=== PATIENT | female | born 1980 | race Caucasian/White ===

== ENCOUNTER 2018-02-10 06:30 | Day surgery (SDC) | payer BC ==
[2018-02-06 10:21] LABS: Absolute Lymphocytes (CBC) 2.3 K/uL (0.7-4.9); Absolute Monocytes 0.8 K/uL (0.1-1.3); Absolute Neutrophil 5.2 K/uL (1.8-8.0); Basophils % 0.6 % (0-1.3); Eosinophils % 3.3 % (0-4.4); Hematocrit 43.6 % (36.0-45.0); MCH 34.3 pg (27.0-35.0); MCV 99.8 fL (80-100); MPV 10.7 fL (7.6-11.3); Monocytes % 9.3 % (3.3-12.3); RBC Red Blood Cell Count 4.37 M/uL (3.86-4.86)
[2018-02-06 10:24] LABS: Urine Appearance CLEAR; Urine Bilirubin NEGATIVE (NEG); Urine Blood TRACE (NEG); Urine Color YELLOW; Urine Glucose NEGATIVE (NEG); Urine Protein NEGATIVE (NEG); Urine Urobilinogen 0.2 mg/dL (0.2-1.0)
[2018-02-06 10:27] LABS: Urine Microscopic Reflex ORDER UMIC
[2018-02-06 10:37] LABS: Urine Bacteria <20 /HPF (<20); Urine RBC <5 /HPF (NONE SEEN)
[2018-02-06 10:38] LABS: Urine Culture Reflex Order NOT NEEDED; Urine Mucus 1+ /HPF (NONE SEEN)
[2018-02-09 12:48] LABS: Specific Gravity 1.025 (1.005-1.030)
[2018-02-10 06:49] LABS: Specific Gravity 1.015 (1.005-1.030)
[2018-02-10] MEDS ORDERED: SCOPOLAMINE HYDROBROMIDE PATCH TD ONE (07:05)
[2018-02-10] MEDS ORDERED: Ringers Lactate 1,000 ML IV ONE ×3 (07:06→11:02)
[2018-02-10] MEDS ORDERED: PROPOFOL 200 MG/20 ML VIAL IV ONE (07:12)
[2018-02-10] MEDS ORDERED: ROCURONIUM 50 MG/5 ML VIAL IV ONE (07:14)
[2018-02-10] MEDS ORDERED: GLYCOPYRROLATE 0.2 MG/ML SYR ONE (07:14)
[2018-02-10] MEDS ORDERED: LIDOCAINE 2% MPF 5 ML VIAL ONE (07:16)
[2018-02-10] MEDS ORDERED: FENTANYL CITR 250 MCG/5 ML ONE (07:17)
[2018-02-10] MEDS ORDERED: NEOSTIGMINE 1 MG/ML -5 ML SYRINGE ONE (07:18)
[2018-02-10] MEDS ORDERED: ONDANSETRON HCL 40 MG/20 ML VIAL ONE ×2 (07:18→10:16)
[2018-02-10] MEDS ORDERED: MIDAZOLAM HCL 2 MG/2 ML INJ ONE (07:45)
[2018-02-10] MEDS: CEFAZOLIN/SWI 1gm 1 GM/10 ML SYR ONE ×2 (08:05→08:20)
[2018-02-10] MEDS ORDERED: EPHEDRINE SULF 50 MG/10 ML SYR ONE (08:29)
[2018-02-10] MEDS ORDERED: KETOROLAC 30 MG/ML INJ ONE (10:08)
[2018-02-10] MEDS ORDERED: DEXAMETHASONE 10 MG/ML VIAL ONE (10:16)
[2018-02-10] MEDS ORDERED: Mastisol Adhesive Liq ONE (10:25)
[2018-02-10] MEDS: MEPERIDINE HCL 50 MG/ML AMP ONE ×8 (10:35→11:12)
[2018-02-10] MEDS: MORPHINE 4 MG/ML SYR ONE ×2 (11:15→11:22)
[2018-02-10] MEDS: FENTANYL CITR 100 MCG/2 ML ONE ×2 (11:30→12:04)
[2018-02-10] MEDS ORDERED: IBUPROFEN 200 MG TAB PO ONE (13:05)
--- NOTE | 2018-02-11 10:29 | OP ---
Date of Procedure: 02/10/2018 Surgeon: Anju Devlin MD Sports Anchor: Adrienne Frazier. Preoperative Diagnoses: Heavy menstrual bleeding, dysmenorrhea, dyspareunia, pelvic pain. Postoperative Diagnoses: Heavy menstrual bleeding, dysmenorrhea, dyspareunia, pelvic pain, possible endometriosis, mass on the liver on the left lobe. Procedures Performed: 1.Diagnostic hysteroscopy followed by endometrial ablation with NovaSure. 2.Diagnostic laparoscopy, bilateral salpingectomy, left ovarian cystectomy, and endometriosis excisi on. Anesthesia: General endotracheal. Estimated Blood Loss: Minimal. Complications: None. Drains: None. Specimens: Left lateral wall, right anterior lateral wall, left cul-de-sac, left ovarian cyst. Findings: 1.There was an incidental mass on the left lobe of the liver on the inferior margin which was about 4 x 2 to 3 cm, appears on the surface to be irregular, possibly consistent with a hemangioma. 2.Endometriosis in the left lateral wall where there was an Shashi-Masters sinus. There was endometr iosis that was underlying, deep, and infiltrating, and it was excised. In the left posterior cul-de- sac, immediately medial to the left uterosacral ligament in the pararectal space, there was a large A llen-Masters sinus again; however, on pulling out the deepest scar and excising it with scissors, the re was only perirectal fat. No evidence of any endometriosis or infiltration here at this point. 3.On the right lateral wall, there was a dark endometriotic implant that was excised. Description Of Procedure: After informed consent was verified, the patient was taken back to the OR. 1 g of Ancef was given. She was placed in a dorsal lithotomy position after general anesthesia was given. Arms were tucked by the side. After pelvic exam was performed, the entire abdomen, vulva, v agina, and perineum were prepped and draped in a sterile fashion. Lopes was placed to drain the blad yesica. Then, speculum was used to expose the cervix. Anterior lip of the cervix was grasped with 2 Al lis clamps. Diagnostic SlimLine hysteroscope was used to enter the cervical canal and under direct v isualization the cavity was checked. Posterior wall appeared to be thickened; however, no intracavit sravanthi lesions were seen. The sounding length of the uterus was 8-1/2 cm. The cervical length was 3-1/ 2 cm. The total cavity length was 5. The cavity width after assessment was 4.4 cm. After this, a S limLine scope was removed. A NovaSure device was taken. The cervix was dilated to 16-Tanzanian. This was inserted to the tip of the uterine cavity and the mesh was deployed. Then, the cervix was occlud ed with occluder, and the cavity integrity test was done, and once this was passed the ablation cycle was started at 121 galloway. The ablation cycle was completed at 121 seconds. After the ablation was complete, this was undeployed and removed carefully without any problems and t he entire cavity was evacuated from the tissue by irrigating and rinsing out with normal saline as we ll as with the help of Reuben forceps. Then, once the entire cavity was clean, pictures were taken. Diagnostic VCare was placed and this area was draped. Lopes was connected to a Lopes bag. Infraum bilical incision was made with a scalpel using a 10 blade. Then, the fascia was incised in the midli ne, tagged on each side with 0 Vicryl stitches, and peritoneum was entered. Marcela was placed after S-retractors were introduced. Site of entry was checked and it was unremarkable. The liver was chec ked and incidental finding on the left lobe of the liver as dictated above. There was a left liver m ass that appeared to be possibly consistent with a hemangioma. Images were first taken, later on the y were repeated because the images were lost due to equipment failure. There were no lesions of endometriosis on the diaphragm or on the omentum. Upper abdominal surfaces were completely free of any endometriotic implants. After the patient was placed in Trendelenburg position, a 5 mm suprapubic incision and the left lower quadrant incisions were made. Trocars were placed under direct vision. Later on, the right lower q uadrant trocar was also placed for retraction. All these were sized, once all these were placed, the survey of the pelvic cavity was conducted. There was an enlarged left ovary with 3 cystic areas, li baldo physiological. The one that appeared to be darker, just in case this is endometriosis, cyst wal l was incised with the help of monopolar needle tip and the cyst was excised. This appeared to be ve ry benign, so I did not go on to remove the other two cysts. The capsule was repaired after appropri ate cauterization from the base with bipolar basket tip with a 3-0 Vicryl on a cutting needle. The o vary was closed. This was wrapped with Interceed later on at the end of the case. The scar tissue present was at the left lateral wall medial to the ureteric tunnel and lateral to the uterosacral ligament was picked up and excised all the way to its base from the deep underlying tiss ues with the help of monopolar hook blade, and this was handed off for pathology. Similarly dissecti on was performed in the sinus medial to the left uterosacral on the left pararectal space. This was pulled out and it was excised with scissors with excellent hemostasis and without having to use the m onopolar electrocautery or bipolar electrocautery. On the right lateral wall anteriorly, a circular area of peritoneum was excised with endometriosis. No other spots were seen. The tubes were cauterized with the help of a basket tip bipolar starting a t the distal ends and taking out the mesosalpinx was also excised . The ovary o n the right side appeared to be completely intact. Now, anterior cul-de-sac and rest of the peritone um were completely unremarkable without any endometriosis. There were small adhesions to the right lower quadrant from the right colon. No other abnormalities were seen. The appendix appeared to be normal. After all the specimens were removed and trocars wer e removed, gas was desufflated. Fascia at the umbilicus was closed with the help of a 0 Vicryl in fi [id number] fashion. all incisions were closed in subcutaneous fashion. VCare and Fole y were removed. The patient was recovered from anesthesia. Instrument, needle, and sponge counts we re correct at the end of the case. The patient tolerated the procedure well. She will follow up with me in 1 week. HUSSEIN/SHABBIR Voice ID: [id number] Report ID: [id number]
== END 2018-02-10 14:04 | disposition home or self-care (01) ==
LOC: OR 06:30
PROVIDERS: ATTEND Obstetrics & Gynecology
PROC: 0UB14ZZ Excision of Left Ovary, Percutaneous Endoscopic Approach (ICD-10-PCS; 2018-02-10)
PROC: 0UT74ZZ Resection of Bilateral Fallopian Tubes, Percutaneous Endoscopic Approach (ICD-10-PCS; 2018-02-10)
PROC: 0UBF4ZX Excision of Cul-de-sac, Percutaneous Endoscopic Approach, Diagnostic (ICD-10-PCS; 2018-02-10)
PROC: 0U5B8ZZ Destruction of Endometrium, Via Natural or Artificial Opening Endoscopic (ICD-10-PCS; principal; 2018-02-10 07:30)
DX: N92.1 Excessive and frequent menstruation with irregular cycle (principal); N83.12 Corpus luteum cyst of left ovary; N80.3 Endometriosis of pelvic peritoneum; N94.12 Deep dyspareunia; N94.6 Dysmenorrhea, unspecified; R16.0 Hepatomegaly, not elsewhere classified; F41.9 Anxiety disorder, unspecified; Z85.41 Personal history of malignant neoplasm of cervix uteri; Z88.8 Allergy status to other drugs, medicaments and biological substances; Z87.891 Personal history of nicotine dependence; Z80.9 Family history of malignant neoplasm, unspecified; Z83.3 Family history of diabetes mellitus
CPT/HCPCS: 36415; 81003; 81015; 81025; 85025; 86850; 86900; 86901; 88302; 88305; J0690; J1100; J2175; J2250; J2405; J2710; J3010

== ENCOUNTER 2018-06-04 07:11 | Day surgery (SDC) | payer BC ==
[2018-06-01 08:52] LABS: Urine Appearance CLOUDY; Urine Bilirubin NEGATIVE (NEG); Urine Blood NEGATIVE (NEG); Urine Color YELLOW; Urine Glucose NEGATIVE (NEG); Urine Protein NEGATIVE (NEG); Urine Urobilinogen 0.2 mg/dL (0.2-1.0)
[2018-06-01 08:56] LABS: Urine Microscopic Reflex ORDER UMIC
[2018-06-01 09:03] LABS: Urine Bacteria 20-50 /HPF (<20); Urine Culture Reflex Order REFLEXED; Urine Mucus 2+ /HPF (NONE SEEN); Urine RBC <5 /HPF (NONE SEEN)
[2018-06-01 09:15] LABS: Absolute Lymphocytes (CBC) 1.9 K/uL (0.7-4.9); Absolute Monocytes 0.6 K/uL (0.1-1.3); Absolute Neutrophil 4.2 K/uL (1.8-8.0); Basophils % 0.5 % (0-1.3); Eosinophils % 3.2 % (0-4.4); Hematocrit 38.9 % (36.0-45.0); Lymphocytes % 27.4 % (15.3-44.8); MPV 10.8 fL (7.6-11.3); Monocytes % 8.4 % (3.3-12.3); RBC Red Blood Cell Count 4.04 M/uL (3.86-4.86)
[2018-06-04] MEDS ORDERED: SCOPOLAMINE HYDROBROMIDE PATCH TD ONE (07:27)
[2018-06-04] MEDS ORDERED: Ringers Lactate 1,000 ML IV ONE (07:27)
[2018-06-04] MEDS ORDERED: CEFAZOLIN 2GM (PREMIX IV) 2 GM/50 ML BAG ONE (07:27)
[2018-06-04] MEDS ORDERED: LIDOCAINE 1% MPF 5 ML VIAL ONE (07:28)
[2018-06-04] MEDS ORDERED: LIDOCAINE 2% MPF 5 ML VIAL ONE (07:29)
[2018-06-04] MEDS ORDERED: FENTANYL CITR 250 MCG/5 ML ONE (07:29)
[2018-06-04] MEDS ORDERED: DEXAMETHASONE 10 MG/ML VIAL ONE (07:29)
[2018-06-04] MEDS ORDERED: PROPOFOL 200 MG/20 ML VIAL IV ONE (07:29)
[2018-06-04] MEDS ORDERED: MIDAZOLAM HCL 2 MG/2 ML INJ ONE (07:29)
[2018-06-04] MEDS ORDERED: ROCURONIUM 50 MG/5 ML VIAL IV ONE (07:29)
[2018-06-04] MEDS ORDERED: NA CHLORIDE 0.9% 1,000 ML ONE (07:30)
[2018-06-04] MEDS ORDERED: ONDANSETRON 4 MG/2 ML VIAL ONE (07:33)
[2018-06-04] MEDS ORDERED: IBUPROFEN 200 MG TAB PO PRN (10:15)
[2018-06-04] MEDS ORDERED: PROMETHAZINE 25 MG/ML VIAL IV PRN (10:15)
[2018-06-04] MEDS ORDERED: HYDROCODONE/APAP 5/325 MG TAB PO PRN (10:15)
[2018-06-04] MEDS ORDERED: KETOROLAC 30 MG/ML INJ ONE (10:18)
--- NOTE | 2018-06-04 10:19 | P.BOP ---
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
[2018-06-04] MEDS ORDERED: Mastisol Adhesive Liq ONE (10:30)
[2018-06-04] MEDS: HYDROMORPHONE HCL 1 MG/ML INJ ONE ×4 (10:48→11:07)
[2018-06-04] MEDS: MIDAZOLAM HCL 2 MG/2 ML INJ ONE ×2 (11:20→11:50)
[2018-06-04] MEDS: MEPERIDINE HCL 25 MG/0.5 ML IM PRN ×2 (11:58→12:03)
[2018-06-04] MEDS ORDERED: MEPERIDINE HCL 25 MG/0.5 ML ONE (12:08)
[2018-06-04] MEDS ORDERED: HYDROCODONE/APAP 5/325 MG TAB ONE (12:53)
--- NOTE | 2018-06-04 21:21 | OP ---
Date of Procedure: 06/04/2018 Surgeon: Anju Devlin MD Preoperative Diagnosis: Pelvic pain, dyspareunia, and dysmenorrhea, possible adenomyosis. Postoperative Diagnosis: Pelvic pain, dyspareunia, and dysmenorrhea, possible adenomyosis. Left hep atic lobe possible hemangioma, picture taken and documented in the chart. Procedures Performed: Total laparoscopic hysterectomy, culdoplasty, lysis of adhesions on the left l ower quadrant. Anesthesia: General endotracheal. Ebl: 50. Specimens: Uterus. Complications: No complications. Drains: None. Condition: Stable. Findings: On the general survey of the abdominal cavity, the left lobe of the liver at the lateral m argin has had at least a 3 cm to 5 cm possible tumor, possible hemangioma. The ovaries were complete ly normal. There was a sinus formed at the site of her left salpingectomy. The proximal end of the tube appeared to have some hemorrhage. Either this is an endometriotic implant or it is from the tub e. The cul-de-sac had appearance of a posterior enterocele, so culdoplasty was performed. Indications: The patient is a 37-year-old who had pelvic pain, menorrhagia and dysmenorrhea and dysp areunia. She was treated with conservative therapy, then brought to the OR for a laparoscopy ablatio n, removal of endometriosis, and bilateral salpingectomy. However the patient has not improved, her dysmenorrhea and dyspareunia have remained the same and causing the severe quality of life issues and relationship dysfunction. She also is done with childbearing. No desire to preserve her uterus. S o as all the conservative treatments and less invasive treatments have failed, we discussed about the hysterectomy. Benefits and risks of the procedure were discussed. Patient wanted to have a bilater al oophorectomy as well. This was discussed to be not necessary to treat her pain at this time unles s there is some new finding during the surgery and that preservation of ovaries are standard of care at this age in the absence of any pathology. Description Of Procedure: After informed consent was verified, she was taken back to the OR, 2 g of Ancef were given. She was placed in a dorsal lithotomy position. Pelvic exam was performed. Uterus was found to be midposition. No adnexal masses were noted. Both arms were tucked, a time-out was done. SCDs were started. Abdomen, vulva, vagina, and perineum were prepped and draped in a sterile fashion. Lopes was placed to drain the bladder and attached to cysto tubing to an LR bag, emptied 300 for retrograde filling. Large VCare was introduced into place and fixed in place. A 1 cm infraumbilical incision was made wi th a scalpel. Fascia incised with a 15 blade, tagged on both sides with 0 Vicryl sutures. Peritoneu m entered sharply, S retractors placed. Marcela introduced. Site of entry was checked. Unremarkable upper abdominal surface. Liver abnormal on the left side, tumor as dictated above. The patient was placed in the Trendelenburg position. A 5 mm left lower quadrant, 10 mm suprapubic p orts were placed under direct vision without any problems. Then, the entire pelvic cavity was survey ed. Both ureters were traced from the pelvic brim to the ureteric tunnel without any anatomical dist ortion. Findings as dictated above. So, hysterectomy was performed in the usual fashion using the L igaSure, opening of the anterior broad ligament on the left, raising the bladder flap all the way opp osite side to the right round ligament then taking down the round ligament, utero-ovarian ligament. The mesosalpinx was absent here. Posterior peritoneum was taken all the way to the left uterosacral insertion. Endometriosis excision was performed here and therefore, the peritoneum appeared to be th in. This was all taken down. The broad ligament was also taken down with the help of the LigaSure. Then, on the opposite side in similar fashion the utero-ovarian ligament was taken down, the round l igament was taken down. The anterior and posterior broad ligaments were opened up. The anterior was connected to finish the bladder flap, posterior taken to the left uterosacral. The broad ligament w as skeletonized, then vessels were skeletonized. Well visualized anterior bladder flap was raised us ing the monopolar hook blade opening the vesicovaginal space. The bladder was dissected inferiorly a nd after adequate exposure of the VCare cup the vessels were taken down on each side by making a tunn el medial to the vessels, so I could get my LigaSure in there. Once the vessels were taken down with the help of the bipolar and the LigaSure, they were cut. The cardinal ligaments were taken down as well with the LigaSure. Opposite side, similar dissection was performed to take down the vessels and the cardinal ligaments. The uterus was detached by performing a colpotomy with a monopolar hook heladio de, removed through the vagina. Thorough irrigation and suction were done at the left uterosacral at tachment. There was bleeding and this was cauterized with the bipolar tips. Then, the colpotomy was closed with a 0 Vicryl simple stitch at each angle then 3 [id number] in the middle, on the lat eral 2 [id number]. The uterosacral ligament distal part was picked up and it was sutured and t his was sutured through the posterior rectovaginal fascia and the anterior precervical fascia. All t hese anterior and posterior cuffs were brought together nicely on both sides then the center stitched with 0 Vicryl including both the anterior and posterior fascia together to prevent an apical prolaps e. The cul-de-sac appeared to have a posterior enterocele. So, culdoplasty was performed with the h elp of a 3-0 Vicryl in a continuous running fashion and this was also used to close the anterior part of the peritoneal opening above the bladder. This way the culdoplasty was done along with closure o f the vaginal cuff with the peritoneum overlying it. Both ureters were visualized and there was no evidence of any thermal, mechanical or electrical injur y to them. Then, the trocars were removed under direct vision. Gas was desufflated. Fascia at the umbilicus closed with 0 Vicryl in [id number] fashion, simple 0 Vicryl stitch at the suprapubic s ite. All skin incisions closed with the help of interrupted 4-0 Vicryl sutures. VCare at the vagina l bulb and the Lopes were removed at the end of the case. The patient recovered from anesthesia. In strument, needle, and sponge counts were done and were correct at the end of this case. The patient tolerated the procedure well, followup wi [facility] in 1 week. HUSSEIN/SHABBIR Voice ID: [id number] Report ID: [id number]
== END 2018-06-04 13:40 | disposition home or self-care (01) ==
LOC: OR 07:11
PROVIDERS: ATTEND Obstetrics & Gynecology
PROC: 0UQF3ZZ Repair Cul-de-sac, Percutaneous Approach (ICD-10-PCS; 2018-06-04)
PROC: 0UT9FZZ Resection of Uterus, Via Natural or Artificial Opening With Percutaneous Endoscopic Assistance (ICD-10-PCS; principal; 2018-06-04 07:30)
DX: N72 Inflammatory disease of cervix uteri (principal); N88.8 Other specified noninflammatory disorders of cervix uteri; N94.6 Dysmenorrhea, unspecified; N94.12 Deep dyspareunia; R10.2 Pelvic and perineal pain; D49.0 Neoplasm of unspecified behavior of digestive system; N81.5 Vaginal enterocele; N80.3 Endometriosis of pelvic peritoneum; N92.1 Excessive and frequent menstruation with irregular cycle; F41.9 Anxiety disorder, unspecified; Z79.899 Other long term (current) drug therapy; F17.210 Nicotine dependence, cigarettes, uncomplicated
CPT/HCPCS: 36415; 81003; 81015; 81025; 85025; 86850; 86900; 86901; 87077; 87086; 87088; 87186; 88307; J0690; J1100; J1170; J2175; J2250; J2405; J2704; J3010; J7030

== ENCOUNTER 2018-06-11 15:30 | Emergency (ER) | payer BC ==
[2018-06-11] MEDS ORDERED: ONDANSETRON 4 MG/2 ML VIAL ONE (17:03)
[2018-06-11] MEDS ORDERED: MORPHINE 4 MG/ML SYR ONE (17:03)
[2018-06-11 17:29] LABS: Absolute Lymphocytes (CBC) 2.1 K/uL (0.7-4.9); Absolute Monocytes 0.8 K/uL (0.1-1.3); Absolute Neutrophil 6.3 K/uL (1.8-8.0); Basophils % 0.6 % (0-1.3); Eosinophils % 4.1 % (0-4.4); Hematocrit 39.4 % (36.0-45.0); Lymphocytes % 21.5 % (15.3-44.8); MPV 10.4 fL (7.6-11.3); Monocytes % 7.9 % (3.3-12.3); RBC Red Blood Cell Count 4.04 M/uL (3.86-4.86)
[2018-06-11 17:40] LABS: Albumin 4.1 g/dL (3.4-5.0); Bilirubin Direct 0.2 mg/dL (0-0.2); Bilirubin Total 0.7 mg/dL (0.2-1.0); Potassium 4.1 mmol/L (3.5-5.1); Protein, Total 8.6 g/dL (6.4-8.2)
[2018-06-11] MEDS ORDERED: NA CHLORIDE 0.9% 1,000 ML ONE (17:55)
[2018-06-11 18:02] LABS: Urine White Blood Cell Casts OK
[2018-06-11 18:03] LABS: Blood Morphology Comment NOT SEEN (NOT SEEN); Platelet Estimate ADEQ; Platelets, Giant NOTED
--- NOTE | 2018-06-11 18:26 | RAD REPORT ---
EXAM DESCRIPTION: CT - Abdomen Pelvis W Contrast - 06/11/2018 6:00 pm CLINICAL HISTORY: Abdominal pain. COMPARISON: November 2017 TECHNIQUE: Computed axial tomography of the abdomen and pelvis was obtained. 100 cc Isovue-300 is ad ministered intravenously. Oral contrast was given. All CT scans are performed using dose optimization technique as appropriate and may include automated exposure control or mA/KV adjustment according to patient size. FINDINGS: Hepatic masses are unchanged probably representing hemangiomas Spleen, pancreas, adrenals and kidneys appear unremarkable. A hysterectomy has been performed. A small to moderate amount of free fluid is present within the pel vis with mildly increased density. A discrete abscess is not seen. There is no evidence of diverticulitis. An air bubble within the pelvis may be secondary to recent catheterization IMPRESSION: Small to moderate amount of free fluid within the pelvis status post hysterectomy. This may represent blood. A discrete abscess is not seen. If the patient's symptoms do not improve then a followup CT scan in a few days would be recommended to reassess the pelvis
--- NOTE | 2018-06-11 19:00 | ER ---
Nurse's Notes [facility] Name: Ronald Chowdhury Age: 37 yrs Sex: Female : 1980 Arrival Date: 06/11/2018 Time: 15:33 Bed 20 Private MD: Diagnosis: Abdominal and pelvic pain Presentation: 06/11 15:37 Presenting complaint: Patient states: i had a hysterectomy on and i am still tw2 in a lot of pain and nauseous, Dr. Devlin. Transition of care: patient was not received from another setting of care. Onset of symptoms was June 11, 2018. Risk Assessment: Do you want to hurt yourself or someone else? Patient reports no desire to harm self or others. Initial Sepsis Screen: Does the patient meet any 2 criteria? No. Patient's initial sepsis screen is negative. Does the patient have a suspected source of infection? No. Patient's initial sepsis screen is negative. Care prior to arrival: None. 15:37 Method Of Arrival: Ambulatory tw2 15:37 Acuity: LAXMI 3 tw2 15:38 Presenting complaint: Patient states: I just left her office and she was going to call tw2 over here for me to get a CT scan. Triage Assessment: 15:41 General: Appears uncomfortable, slender, Behavior is appropriate for age. Pain: tw2 Complains of pain in abdomen and pelvis. 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 - Social history:: Smoking status: . - Ebola Screening: : Patient denies travel to an Ebola-affected area in the 21 days before illness onset. Screenin:30 Abuse screen: Denies threats or abuse. Denies injuries from another. Nutritional aj1 screening: No deficits noted. Tuberculosis screening: No symptoms or risk factors identified. Assessment: 16:30 General: Appears in no apparent distress. uncomfortable, Behavior is calm, cooperative, aj1 appropriate for age. Pain: Complains of pain in left lower quadrant and suprapubic area and umbilical area Pain does not radiate. Pain currently is 10 out of 10 on a pain scale. Pain: Neuro: Level of Consciousness is awake, alert, obeys commands, Oriented to person, place, time, situation. Cardiovascular: Patient's skin is warm and dry. Respiratory: Airway is patent Respiratory effort is even, unlabored, Respiratory pattern is regular, symmetrical. GI: Abdomen is non-distended, Bowel sounds present X 4 quads. Abd is soft X 4 quads Abdomen is tender to palpation in suprapubic area and umbilical area and pelvis. : No signs and/or symptoms were reported regarding the genitourinary system. EENT: No signs and/or symptoms were reported regarding the EENT system. Derm: No signs and/or symptoms reported regarding the dermatologic system. Skin is pink, warm \T\ dry. normal. Musculoskeletal: No signs and/or symptoms reported regarding the musculoskeletal system. Circulation, motion, and sensation intact. 17:30 Reassessment: Patient appears in no apparent distress at this time. No changes from aj1 previously documented assessment. Patient and/or family updated on plan of care and expected duration. Pain level reassessed. Patient is alert, oriented x 3, equal unlabored respirations, skin warm/dry/pink. 18:30 Reassessment: Patient appears in no apparent distress at this time. No changes from aj1 previously documented assessment. Patient and/or family updated on plan of care and expected duration. Pain level reassessed. Patient is alert, oriented x 3, equal unlabored respirations, skin warm/dry/pink. 19:00 Reassessment: Patient appears in no apparent distress at this time. Patient and/or aj1 family updated on plan of care and expected duration. Pain level reassessed. Patient is alert, oriented x 3, equal unlabored respirations, skin warm/dry/pink. 20:00 Reassessment: Patient appears in no apparent distress at this time. Patient and/or aj1 family updated on plan of care and expected duration. Pain level reassessed. Patient is alert, oriented x 3, equal unlabored respirations, skin warm/dry/pink. Family is at the bedside. waiting 15 minutes after [place] administration to discharge per previous providers orders. Vital Signs: 15:38 BP 103 / 85; Pulse 104; Resp 19; Temp 97.8(O); Pulse Ox 99% on R/A; Weight 53.07 kg tw2 (R); Height 5 ft. 1 in. (154.94 cm); Pain 7/10; 16:30 BP 112 / 65; Pulse 95; Resp 18; Pulse Ox 99% on R/A; aj1 18:40 BP 102 / 62; Pulse 81; Resp 16; Pulse Ox 100% on R/A; aj1 19:15 BP 106 / 69; Pulse 82; Resp 16; Pulse Ox 100% on R/A; aj1 19:45 BP 104 / 68; Pulse 84; Resp 16; Pulse Ox 99% on R/A; aj1 15:38 Body Mass Index 22.11 (53.07 kg, 154.94 cm) tw2 ED Course: 15:33 Patient arrived in ED. sb2 15:38 Triage completed. tw2 15:39 Arm band placed on. tw2 16:[address] MD is Attending Physician. kdr 16:24 Oral contrast given. vm2 16:30 Patient has correct armband on for positive identification. Bed in low position. Call aj1 light in reach. Side rails up X 1. 16:30 No provider procedures requiring assistance completed. Inserted saline lock: 22 gauge aj1 in left antecubital area, using aseptic technique. Blood collected. 16:31 Faye Helton, RN is Primary Nurse. aj1 16:58 Radiology exam delayed due to lab results not completed at this time. (BUN/Creatinine). vm2 17:[address] via wheelchair. vm2 17:55 CT completed. Patient tolerated procedure well. Patient moved back from CT. nj 18:00 CT Abd/Pelvis - W/Contrast In Process Unspecified. EDMS 18:58 Anju Devlin MD is Referral Physician. kdr 20:00 IV discontinued, intact, bleeding controlled. jb4 Administered Medications: 17:11 Drug: Zofran 4 mg Route: IVP; Site: left antecubital; aj1 17:12 Drug: morphine 4 mg Route: IVP; Site: left antecubital; aj1 17:50 Drug: NS 0.9% 1000 ml Route: IV; Rate: 1 bolus; Site: left antecubital; aj1 19:00 Follow up: Response: No adverse reaction; IV Status: Completed infusion aj1 18:58 Drug: fentaNYL (PF) 50 mcg Route: IVP; Site: left antecubital; aj1 19:20 Follow up: Response: No adverse reaction; No adverse reaction, Pain decreased and then aj1 returned. 19:31 Drug: fentaNYL (PF) 50 mcg Route: IVP; Site: left antecubital; aj1 19:56 Follow up: Response: No adverse reaction; Pain is unchanged, physician notified aj1 19:56 Drug: [place] (7.5 mg-325 mg) 1 tabs Route: PO; aj1 20:11 Follow up: Response: No adverse reaction; Pain is decreased jb4 Outcome: 18:59 Discharge ordered by MD. kdr 20:31 Discharged to home via wheelchair, with family. jb4 20:31 Condition: stable 20:31 Discharge instructions given to patient, family, Instructed on discharge instructions, follow up and referral plans. medication usage, Demonstrated understanding of instructions, follow-up care, medications, Prescriptions given X 3. 20:32 Patient left the ED. jb4 Signatures: Dispatcher [employer] EDMS Faye Helton RN RN aj1 Karthikeyan Lane MD MD [facility] Kizzy Soares RN RN ss Nanci Wynn RN RN tw2 Chi Hare RN RN jb4 Pancho Irene Victoria Yasmin Damian 2 Corrections: (The following items were deleted from the chart) 15:44 15:37 Presenting complaint: Patient states: i had a hysterectomy on and i am ss still in a lot of pain and nauseous, Dr. Alejandre tw2 20:08 20:00 Reassessment: Patient appears in no apparent distress at this time. Patient aj1 and/or family updated on plan of care and expected duration. Pain level reassessed. Patient is alert, oriented x 3, equal unlabored respirations, skin warm/dry/pink. Family is at the bedside. aj1
--- NOTE | 2018-06-11 19:00 | EDPHYS ---
Physician Documentation [facility] Name: Ronald Chowdhury Age: 37 yrs Sex: Female : 1980 Arrival Date: 06/11/2018 Time: 15:33 Bed 20 Private MD: ED Physician Karthikeyan Lane HPI: 06/11 16:52 This 37 yrs old Female presents to ER via Ambulatory with complaints of Pain kdr after hysterectomy. 16:52 The patient presents with abdominal pain in the left lower quadrant. Onset: The kdr symptoms/episode began/occurred gradually, 8 day(s) ago, Since she had her hysterectomy last week. The symptoms do not radiate. Associated signs and symptoms: Pertinent positives: nausea and vomiting. The symptoms are described as achy, constant, sharp, steady. Modifying factors: The symptoms are alleviated by nothing, the symptoms are aggravated by coughing, movement, touching the area, walking. Severity of pain: At its worst the pain was moderate severe in the emergency department the pain is unchanged. The patient has not experienced similar symptoms in the past. s/p hyst last week. 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 - Social history:: Smoking status: . - Ebola Screening: : Patient denies travel to an Ebola-affected area in the 21 days before illness onset. ROS: 16:52 Constitutional: Negative for fever, chills, and weight loss, Eyes: Negative for injury, kdr pain, redness, and discharge, ENT: Negative for injury, pain, and discharge, Neck: Negative for injury, pain, and swelling, Cardiovascular: Negative for chest pain, palpitations, and edema, Respiratory: Negative for shortness of breath, cough, wheezing, and pleuritic chest pain, Back: Negative for injury and pain, : Negative for injury, bleeding, discharge, and swelling, MS/Extremity: Negative for injury and deformity, Skin: Negative for injury, rash, and discoloration, Neuro: Negative for headache, weakness, numbness, tingling, and seizure activity. Psych: Negative for depression, anxiety, suicide ideation, homicidal ideation, and hallucinations, Allergy/Immunology: Negative for hives, rash, and allergies, Endocrine: Negative for neck swelling, polydipsia, polyuria, polyphagia, and marked weight changes, Hematologic/Lymphatic: Negative for swollen nodes, abnormal bleeding, and unusual bruising. 16:52 Abdomen/GI: Positive for abdominal pain, nausea and vomiting, Negative for diarrhea, constipation, abdominal distension, anorexia, dysphagia, hematemesis, black/tarry stool, rectal pain, rectal bleeding, bowel incontinence, flatulence. Exam: 16:52 Constitutional: This is a well developed, well nourished patient who is awake, alert, kdr and in no acute distress. Head/Face: Normocephalic, atraumatic. Eyes: Pupils equal round and reactive to light, extra-ocular motions intact. Lids and lashes normal. Conjunctiva and sclera are non-icteric and not injected. Cornea within normal limits. Periorbital areas with no swelling, redness, or edema. Neck: Trachea midline, no thyromegaly or masses palpated, and no cervical lymphadenopathy. Supple, full range of motion without nuchal rigidity, or vertebral point tenderness. No Meningismus. Chest/axilla: Normal chest wall appearance and motion. Nontender with no deformity. No lesions are appreciated. Cardiovascular: Regular rate and rhythm with a normal S1 and S2. No gallops, murmurs, or rubs. Normal PMI, no JVD. No pulse deficits. Respiratory: Lungs have equal breath sounds bilaterally, clear to auscultation and percussion. No rales, rhonchi or wheezes noted. No increased work of breathing, no retractions or nasal flaring. Back: No spinal tenderness. No costovertebral tenderness. Full range of motion. Skin: Warm, dry with normal turgor. Normal color with no rashes, no lesions, and no evidence of cellulitis. MS/ Extremity: Pulses equal, no cyanosis. Neurovascular intact. Full, normal range of motion. Neuro: Awake and alert, GCS 15, oriented to person, place, time, and situation. Cranial nerves II-XII grossly intact. Motor strength 5/5 in all extremities. Sensory grossly intact. Cerebellar exam normal. Normal gait. Psych: Awake, alert, with orientation to person, place and time. Behavior, mood, and affect are within normal limits. 16:52 Abdomen/GI: Inspection: scar(s), are noted in the umbilical area, suprapubic area and left lower quadrant, Bowel sounds: active, diminished, in all quadrants, Palpation: soft, severe abdominal tenderness, in the left lower quadrant, rebound tenderness, is appreciated in the left lower quadrant, voluntary guarding, is elicited in the left lower quadrant. Vital Signs: 15:38 BP 103 / 85; Pulse 104; Resp 19; Temp 97.8(O); Pulse Ox 99% on R/A; Weight 53.07 kg tw2 (R); Height 5 ft. 1 in. (154.94 cm); Pain 7/10; 16:30 BP 112 / 65; Pulse 95; Resp 18; Pulse Ox 99% on R/A; aj1 18:40 BP 102 / 62; Pulse 81; Resp 16; Pulse Ox 100% on R/A; aj1 19:15 BP 106 / 69; Pulse 82; Resp 16; Pulse Ox 100% on R/A; aj1 19:45 BP 104 / 68; Pulse 84; Resp 16; Pulse Ox 99% on R/A; aj1 15:38 Body Mass Index 22.11 (53.07 kg, 154.94 cm) tw2 MDM: 16:52 Data reviewed: vital signs, nurses notes, lab test result(s), radiologic studies. kdr Counseling: I had a detailed discussion with the patient and/or guardian regarding: the historical points, exam findings, and any diagnostic results supporting the discharge/admit diagnosis, lab results, radiology results. 18:59 Patient medically screened. kdr 19:12 Physician consultation: Anju Devlin MD and will see patient in office, next week. kdr 06/11 16:11 Order name: Basic Metabolic Panel; Complete Time: 17:43 kdr 06/11 16:11 Order name: CBC with Diff; Complete Time: 18:28 kdr 06/11 16:11 Order name: Creatinine for Radiology; Complete Time: 17:43 kdr 06/11 16:11 Order name: Hepatic Function; Complete Time: 17:43 kdr 06/11 16:11 Order name: Lipase; Complete Time: 17:43 kdr 06/11 18:03 Order name: CBC Smear Scan; Complete Time: 18:28 EDMS 06/11 16:11 Order name: CT Abd/Pelvis - W/Contrast; Complete Time: 18:46 kdr 06/11 16:11 Order name: IV Saline Lock; Complete Time: 17:12 kdr 06/11 16:11 Order name: Labs collected and sent; Complete Time: 17:12 kdr Administered Medications: 17:11 Drug: Zofran 4 mg Route: IVP; Site: left antecubital; aj1 17:12 Drug: morphine 4 mg Route: IVP; Site: left antecubital; aj1 17:50 Drug: NS 0.9% 1000 ml Route: IV; Rate: 1 bolus; Site: left antecubital; aj1 19:00 Follow up: Response: No adverse reaction; IV Status: Completed infusion aj1 18:58 Drug: fentaNYL (PF) 50 mcg Route: IVP; Site: left antecubital; aj1 19:20 Follow up: Response: No adverse reaction; No adverse reaction, Pain decreased and then aj1 returned. 19:31 Drug: fentaNYL (PF) 50 mcg Route: IVP; Site: left antecubital; aj1 19:56 Follow up: Response: No adverse reaction; Pain is unchanged, physician notified aj1 19:56 Drug: [place] (7.5 mg-325 mg) 1 tabs Route: PO; aj1 20:11 Follow up: Response: No adverse reaction; Pain is decreased jb4 Disposition: 06/11/18 18:59 Discharged to Home. Impression: Abdominal and pelvic pain. - Condition is Stable. - Discharge Instructions: Abdominal Pain, Adult, [id number]. - Prescriptions for Bentyl 20 mg Oral Tablet - take 1 tablet by ORAL route every 6 hours As needed; 20 tablet. Tylenol- Codeine #3 300-30 mg Oral Tablet - take 2 tablet by ORAL route every 6 hours As needed; 30 tablet. Zofran 4 mg Oral Tablet - take 1 tablet by ORAL route every 12 hours As needed; 6 tablet. - Medication Reconciliation Form, Thank You Letter, Prescription Opioid Use form. - Follow up: Private Physician; When: 2 - 3 days; Reason: If symptoms return, Further diagnostic work-up, Recheck today's complaints, Continuance of care, Re-evaluation by your physician. Follow up: Anju Devlin MD; When: 2 - 3 days; Reason: If symptoms return, Further diagnostic work-up, Recheck today's complaints, Continuance of care, Re-evaluation by your physician. - Problem is an ongoing problem. - Symptoms have improved. Signatures: Dispatcher [employer] EDMS Faye Helton RN RN aj1 Karthikeyan Lane MD MD [facility] Nanci Wynn RN RN tw2 Chi Hare RN RN jb4 Corrections: (The following items were deleted from the chart) 20:32 18:59 06/11/2018 18:59 Discharged to Home. Impression: Abdominal and pelvic pain. jb4 Condition is Stable. Forms are Medication Reconciliation Form, Thank You Letter, Antibiotic Education, Prescription Opioid Use. Follow up: Private Physician; When: 2 - 3 days; Reason: If symptoms return, Further diagnostic work-up, Recheck today's complaints, Continuance of care, Re-evaluation by your physician. Follow up: Anju Devlin; When: 2 - 3 days; Reason: If symptoms return, Further diagnostic work-up, Recheck today's complaints, Continuance of care, Re-evaluation by your physician. Problem is an ongoing problem. Symptoms have improved. kdr
[2018-06-11] MEDS ORDERED: FENTANYL CITR 100 MCG/2 ML ONE ×2 (19:03→19:34)
[2018-06-11] MEDS ORDERED: HYDROCODONE/APAP 7.5/325 MG TAB ONE (20:05)
== END 2018-06-11 20:32 | disposition home or self-care (01) ==
LOC: ER 15:30
DX: R10.2 Pelvic and perineal pain (principal); F41.9 Anxiety disorder, unspecified; Z85.41 Personal history of malignant neoplasm of cervix uteri; Z88.8 Allergy status to other drugs, medicaments and biological substances; Z90.710 Acquired absence of both cervix and uterus
CPT/HCPCS: 36415; 74177; 80048; 80076; 83690; 85025; 96361; 96374; 96375; 99284; J2405; J3010; J7030; Q9967

== ENCOUNTER 2018-07-21 21:46 | Emergency (ER) | payer BC ==
[2018-07-21 22:59] LABS: Absolute Lymphocytes (CBC) 2.2 K/uL (0.7-4.9); Absolute Monocytes 0.5 K/uL (0.1-1.3); Absolute Neutrophil 3.8 K/uL (1.8-8.0); Basophils % 0.3 % (0-1.3); Eosinophils % 2.9 % (0-4.4); Lymphocytes % 32.3 % (15.3-44.8); MPV 10.5 fL (7.6-11.3); Monocytes % 7.8 % (3.3-12.3); RBC Red Blood Cell Count 3.63 M/uL (3.86-4.86)
[2018-07-21] MEDS ORDERED: ONDANSETRON 4 MG/2 ML VIAL ONE (23:03)
[2018-07-21] MEDS ORDERED: MORPHINE 4 MG/ML SYR ONE (23:03)
[2018-07-21 23:15] LABS: ALT/SGPT 14 U/L (12-78); AST/SGOT 9 U/L (15-37); Albumin 3.3 g/dL (3.4-5.0); Alkaline Phosphatase 55 U/L (45-117); BUN Blood Urea Nitrogen 7 mg/dL (7-18); Bicarbonate 27 mmol/L (21-32); Bilirubin Direct 0.1 mg/dL (0-0.2); Bilirubin Total 0.4 mg/dL (0.2-1.0); Glucose Level 82 mg/dL (74-106); Lipase 84 U/L (73-393); Potassium 3.6 mmol/L (3.5-5.1); Sodium Level 141 mmol/L (136-145)
[2018-07-21] MEDS ORDERED: FENTANYL CITR 100 MCG/2 ML ONE (23:18)
[2018-07-22] MEDS ORDERED: FENTANYL CITR 100 MCG/2 ML ONE (00:22)
[2018-07-22 00:41] LABS: Urine Blood TRACE (NEG); Urine Glucose NEGATIVE (NEG); Urine Protein NEGATIVE (NEG)
[2018-07-22] MEDS ORDERED: HYDROMORPHONE HCL 0.5 MG/0.5 ML INJ ONE (01:10)
--- NOTE | 2018-07-22 03:42 | ER ---
Nurse's Notes [facility] Name: Ronald Chowdhury Age: 37 yrs Sex: Female : 1980 Arrival Date: 07/21/2018 Time: 21:47 Bed 16 Private MD: Saurabh Bruno T Diagnosis: Abdominal pain. Bilateral ovarian cysts Presentation: 07/21 21:55 Presenting complaint: Patient states: Had a hysterectomy at the beginning of May; lp1 States she has been overexerting herself lately and has began to have lower pelvic pain/cramping; States pain is severe when urinating; Denies vomiting, fever. Transition of care: patient was not received from another setting of care. Onset of symptoms was July 21, 2018. Risk Assessment: Do you want to hurt yourself or someone else? Patient reports no desire to harm self or others. Initial Sepsis Screen: Does the patient meet any 2 criteria? No. Patient's initial sepsis screen is negative. Does the patient have a suspected source of infection? No. Patient's initial sepsis screen is negative. Care prior to arrival: None. 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 - Social history:: Smoking status: Patient/guardian denies using tobacco. - Ebola Screening: : No symptoms or risks identified at this time. Screenin:59 Abuse screen: Denies threats or abuse. Denies injuries from another. Nutritional lp1 screening: No deficits noted. Tuberculosis screening: No symptoms or risk factors identified. Fall Risk None identified. Assessment: 22:40 General: Appears in no apparent distress. uncomfortable, Behavior is calm, cooperative, jd3 appropriate for age. Pain: Complains of pain in suprapubic area Quality of pain is described as aching, pressure, tender. Neuro: Level of Consciousness is awake, alert, obeys commands, Oriented to person, place, time, situation, Appropriate for age. Cardiovascular: Capillary refill < 3 seconds Patient's skin is warm and dry. Respiratory: Airway is patent Respiratory effort is even, unlabored, Respiratory pattern is regular, symmetrical, Denies shortness of breath. GI: Abdomen is flat, non-distended, Abd is soft X 4 quads Abdomen is tender to palpation in suprapubic area, right lower quadrant and left lower quadrant Reports lower abdominal pain, cramping. EENT: No signs and/or symptoms were reported regarding the EENT system. Derm: Skin is intact, Skin is dry, Skin is normal, Skin temperature is warm. Musculoskeletal: Circulation, motion, and sensation intact. Range of motion: intact in all extremities. 22:59 : Reports vaginal bleeding that is moderate flow, pt reports using 3 pads a day. jd3 23:13 Reassessment: Patient appears in no apparent distress at this time. Patient and/or jd3 family updated on plan of care and expected duration. Pain level reassessed. Patient is alert, oriented x 3, equal unlabored respirations, skin warm/dry/pink. awaiting lab results and CT scan. 07/22 00:18 Reassessment: Patient appears in no apparent distress at this time. Patient and/or jd3 family updated on plan of care and expected duration. Pain level reassessed. Patient is alert, oriented x 3, equal unlabored respirations, skin warm/dry/pink. 00:54 Reassessment: Patient appears in no apparent distress at this time. Patient and/or jd3 family updated on plan of care and expected duration. Pain level reassessed. Patient is alert, oriented x 3, equal unlabored respirations, skin warm/dry/pink. pt reporting pain sensation not going away provider notified, new orders received. 01:14 Reassessment: Patient appears in no apparent distress at this time. Patient and/or jd3 family updated on plan of care and expected duration. Pain level reassessed. Patient is alert, oriented x 3, equal unlabored respirations, skin warm/dry/pink. 02:33 Reassessment: Patient appears in no apparent distress at this time. Patient and/or jd3 family updated on plan of care and expected duration. Pain level reassessed. Patient is alert, oriented x 3, equal unlabored respirations, skin warm/dry/pink. awaiting ultrasound. 03:03 Reassessment: television production technician at bedside to take pt for ultrasound. jd3 03:36 Reassessment: Patient appears in no apparent distress at this time. Patient and/or jd3 family updated on plan of care and expected duration. Pain level reassessed. Patient is alert, oriented x 3, equal unlabored respirations, skin warm/dry/pink. pt back to room from ultrasound. awaiting disposition from provider. 04:02 Reassessment: Patient appears in no apparent distress at this time. Patient and/or jd3 family updated on plan of care and expected duration. Pain level reassessed. Patient is alert, oriented x 3, equal unlabored respirations, skin warm/dry/pink. 04:03 Reassessment: Patient appears in no apparent distress at this time. Patient and/or jd3 family updated on plan of care and expected duration. Pain level reassessed. Patient is alert, oriented x 3, equal unlabored respirations, skin warm/dry/pink. reported understanding of discharge instructions. Vital Signs: 07/21 21:59 BP 117 / 80; Pulse 88; Resp 16; Temp 98.1(O); Pulse Ox 100% on R/A; Weight 52.62 kg lp1 (R); Height 5 ft. 1 in. (154.94 cm); Pain 8/10; 23:12 BP 112 / 86; Pulse 87; Resp 17 S; Pulse Ox 97% on R/A; Pain 7/10; jd3 07/22 00:18 BP 106 / 92; Pulse 80; Resp 18 S; Pulse Ox 97% on R/A; jd3 01:14 BP 111 / 93; Pulse 80; Resp 16 S; Pulse Ox 96% on R/A; jd3 02:33 BP 103 / 83; Pulse 80; Resp 16 S; Pulse Ox 99% on R/A; jd3 03:37 BP 106 / 76; Pulse 80; Resp 17 S; Pulse Ox 99% on R/A; jd3 07/21 21:59 Body Mass Index 21.92 (52.62 kg, 154.94 cm) lp1 ED Course: 07/21 21:47 Patient arrived in ED. am2 21:48 Saurabh Bruno MD is Private Physician. am2 21:57 Triage completed. lp1 21:59 Arm band placed on left wrist. lp1 22:08 Leo Perez PA is PHCP. jmm 22:08 Chidi Arboleda MD is Attending Physician. jmm 22:32 David Garcia, JÚNIOR is Primary Nurse. jd3 22:40 Inserted saline lock: 22 gauge in right antecubital area, using aseptic technique. jd3 Blood collected. 22:45 Radiology exam delayed due to lab results not completed at this time. (BUN/Creatinine). nj 22:49 Patient has correct armband on for positive identification. Bed in low position. Call jd3 light in reach. Side rails up X 1. Adult w/ patient. 07/22 00:11 CT Abd/Pelvis - W/Contrast In Process Unspecified. EDMS 00:18 CT completed. Patient tolerated procedure well. Patient moved to CT via stretcher. Patient moved back from CT. 03:28 Transvaginal Study Probe In Process Unspecified. EDMS 03:40 Anju Devlin MD is Referral Physician. pkl 04:01 No provider procedures requiring assistance completed. IV discontinued, intact, jd3 bleeding controlled, No redness/swelling at site. Pressure dressing applied. Administered Medications: 07/21 22:57 Drug: morphine 4 mg Route: IVP; Site: right antecubital; jd3 23:50 Follow up: Response: No adverse reaction jd3 22:57 Drug: Zofran 4 mg Route: IVP; Site: right antecubital; jd3 23:50 Follow up: Response: No adverse reaction jd3 23:12 Drug: fentaNYL (PF) 50 mcg Route: IVP; Site: right antecubital; jd3 07/22 00:10 Follow up: Response: No adverse reaction jd3 00:17 Drug: fentaNYL (PF) 25 mcg Route: IVP; Site: right antecubital; jd3 04:01 Follow up: Response: No adverse reaction jd3 01:04 Drug: Dilaudid 0.5 mg Route: IVP; Site: right antecubital; jd3 04:01 Follow up: Response: No adverse reaction jd3 04:00 Drug: UltRAM 50 mg Route: PO; jd3 04:01 Follow up: Response: Medication administered at discharge. jd3 Outcome: 03:41 Discharge ordered by . pksussy 04:02 Discharged to home ambulatory, with family. jd3 04:02 Condition: stable 04:02 Discharge instructions given to patient, family, Instructed on discharge instructions, follow up and referral plans. medication usage, Demonstrated understanding of instructions, follow-up care, medications, Prescriptions given X 1. 04:04 Patient left the ED. jd3 Signatures: Dispatcher [employer] EDMS Chidi Arboleda MD MD pkl Mickail, Joel, PA PA jmm Hagler, Ervin eh Pena, Laura, JÚNIOR RN lp1 Pancho Irene Amanda amDavid Newton RN RN jd3 Corrections: (The following items were deleted from the chart) 07/21 23:13 23:12 BP 112 / 86; Pulse 87bpm; Resp 17bpm; Spontaneous; Pulse Ox 97% RA; jd3 jd3 23:17 22:40 GI: Abdomen is flat, non-distended, Bowel sounds present X 4 quads. Abd is soft X jd3 4 quads Abdomen is tender to palpation in suprapubic area, right lower quadrant and left lower quadrant jd3 23:17 22:40 : No signs and/or symptoms were reported regarding the genitourinary system. [id number]
--- NOTE | 2018-07-22 03:42 | EDPHYS ---
Physician Documentation [facility] Name: Ronald Chowdhury Age: 37 yrs Sex: Female : 1980 Arrival Date: 07/21/2018 Time: 21:47 Bed 16 Private MD: Saurabh Bruno T ED Physician Chidi Arboleda HPI: 07/21 22:23 This 37 yrs old Female presents to ER via Wheelchair with complaints of jmm Abdominal Cramping - post hysterectomy, Vaginal Bleeding, Abdominal Pain, Pain With Urination. 22:23 The patient presents with pelvic pain. Onset: The symptoms/episode began/occurred jmm today. Associated signs and symptoms: Pertinent positives: dysuria. This is a 37 year old female s/p hysterectomy in early May of this year that presents to the ED with complaints of pelvic pain, vaginal bleeding and dysuria beginning earlier today. patient states she has had intermittent cramping after surgery but not at this severity. Denies fever, denies vomiting. . 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 - Social history:: Smoking status: Patient/guardian denies using tobacco. - Ebola Screening: : No symptoms or risks identified at this time. ROS: 22:23 Constitutional: Negative for fever, chills, and weight loss, Cardiovascular: Negative jmm for chest pain, palpitations, and edema, Respiratory: Negative for shortness of breath, cough, wheezing, and pleuritic chest pain. 22:23 Abdomen/GI: Positive for abdominal pain. 22:23 : Positive for urinary symptoms, pelvic pain. 22:23 All other systems are negative. Exam: 22:23 Constitutional: This is a well developed, well nourished patient who is awake, alert, jmm and in no acute distress. Head/Face: atraumatic. Eyes: EOMI, no conjunctival erythema appreciated ENT: Moist Mucus Membranes Neck: Trachea midline, Supple Chest/axilla: Normal chest wall appearance and motion. Cardiovascular: Regular rate and rhythm. No edema appreciated Respiratory: Normal respirations, no respiratory distress appreciated 22:23 Abdomen/GI: Inspection: abdomen appears normal, Bowel sounds: normal, Palpation: soft, moderate abdominal tenderness, in the suprapubic area. 22:23 Back: ROM is normal. 22:23 Musculoskeletal/extremity: ROM: intact in all extremities. 22:23 Skin: Appearance: Color: normal in color. 22:23 Neuro: Orientation: is normal, Mentation: is normal, Memory: is normal. 22:23 Psych: Behavior/mood is pleasant, cooperative. Vital Signs: 21:59 BP 117 / 80; Pulse 88; Resp 16; Temp 98.1(O); Pulse Ox 100% on R/A; Weight 52.62 kg lp1 (R); Height 5 ft. 1 in. (154.94 cm); Pain 8/10; 23:12 BP 112 / 86; Pulse 87; Resp 17 S; Pulse Ox 97% on R/A; Pain 7/10; jd3 07/22 00:18 BP 106 / 92; Pulse 80; Resp 18 S; Pulse Ox 97% on R/A; jd3 01:14 BP 111 / 93; Pulse 80; Resp 16 S; Pulse Ox 96% on R/A; jd3 02:33 BP 103 / 83; Pulse 80; Resp 16 S; Pulse Ox 99% on R/A; jd3 03:37 BP 106 / 76; Pulse 80; Resp 17 S; Pulse Ox 99% on R/A; jd3 07/21 21:59 Body Mass Index 21.92 (52.62 kg, 154.94 cm) lp1 MDM: 07/21 22:23 Patient medically screened. [facility] 07/22 02:37 Transition of care: After a detail discussion of the patient's case, care is [facility] transferred to Chidi Arboleda MD. 03:39 Data reviewed: vital signs, nurses notes, lab test result(s), radiologic studies, CT pkl scan, ultrasound. 07/21 22:24 Order name: Basic Metabolic Panel; Complete Time: 23:36 [facility] 07/21 22:24 Order name: CBC with Diff; Complete Time: 23:36 [facility] 07/21 22:24 Order name: Creatinine for Radiology; Complete Time: 23:36 [facility] 07/21 22:24 Order name: Hepatic Function; Complete Time: 23:36 [facility] 07/21 22:24 Order name: Lipase; Complete Time: 23:36 [facility] 07/21 23:56 Order name: Urine Dipstick--Ancillary (enter results); Complete Time: 00:56 ar5 07/21 22:24 Order name: CT Abd/Pelvis - W/Contrast [facility] 07/22 03:28 Order name: Transvaginal Study Probe [facility] 07/21 22:24 Order name: IV Saline Lock; Complete Time: 22:48 [facility] 07/21 22:24 Order name: Labs collected and sent; Complete Time: 22:48 [facility] 07/21 22:24 Order name: Urine Dipstick-Ancillary (obtain specimen); Complete Time: 22:50 [facility] Administered Medications: 07/21 22:57 Drug: morphine 4 mg Route: IVP; Site: right antecubital; jd3 23:50 Follow up: Response: No adverse reaction jd3 22:57 Drug: Zofran 4 mg Route: IVP; Site: right antecubital; jd3 23:50 Follow up: Response: No adverse reaction jd3 23:12 Drug: fentaNYL (PF) 50 mcg Route: IVP; Site: right antecubital; jd3 07/22 00:10 Follow up: Response: No adverse reaction jd3 00:17 Drug: fentaNYL (PF) 25 mcg Route: IVP; Site: right antecubital; jd3 04:01 Follow up: Response: No adverse reaction jd3 01:04 Drug: Dilaudid 0.5 mg Route: IVP; Site: right antecubital; jd3 04:01 Follow up: Response: No adverse reaction jd3 04:00 Drug: UltRAM 50 mg Route: PO; jd3 04:01 Follow up: Response: Medication administered at discharge. jd3 Disposition: 03:47 Co-signature as Attending Physician, Chidi Arboleda MD. pkl Disposition: 07/22/18 03:41 Discharged to Home. Impression: Abdominal pain. Bilateral ovarian cysts. - Condition is Stable. - Prescriptions for Ultram 50 mg Oral Tablet - take 1 tablet by ORAL route every 8 hours As needed; 20 tablet. - Medication Reconciliation Form, Thank You Letter, Antibiotic Education, Prescription Opioid Use form. - Follow up: Anju Devlin MD; When: 2 - 3 days; Reason: Re-evaluation by your physician. - Problem is new. - Symptoms have improved. Signatures: Dispatcher [employer] EDCT Chidi Arboleda MD MD pkl Leo Perez PA PA jmm Pena, Laura RN RN lp1 David Garcia RN RN jd3 Corrections: (The following items were deleted from the chart) 03:28 02:37 Pelvis Complete+US.RAD.BRZ ordered. [facility] EDMS 04:04 03:41 07/22/2018 03:41 Discharged to Home. Impression: Abdominal pain. Bilateral jd3 ovarian cysts. Condition is Stable. Forms are Medication Reconciliation Form, Thank You Letter, Antibiotic Education, Prescription Opioid Use. Follow up: Anju Devlin; When: 2 - 3 days; Reason: Re-evaluation by your physician. Problem is new. Symptoms have improved. pkl
[2018-07-22] MEDS ORDERED: TRAMADOL HCL 50 MG TAB ONE (04:07)
--- NOTE | 2018-07-22 08:26 | RAD REPORT ---
EXAM DESCRIPTION: US - Transvaginal Study Probe - 07/22/2018 3:27 am CLINICAL HISTORY: Vaginal bleeding, pelvic pain, hysterectomy May 2018 COMPARISON: November 2017 ultrasound, July 21 CT study TECHNIQUE: Endovaginal sonography was performed. FINDINGS: Uterus is absent. No abnormal free fluid collection in the pelvis. A 2.4 centimeter thin-w alled anechoic right ovarian cyst is identified. No suspicious characteristics. A 2.4 centimeter anec hoic left ovarian cyst is present also without suspicious characteristics. No urinary bladder abnorma lity. No suspicious adnexal mass. IMPRESSION: Bilateral benign ovarian cysts, both approximately 2.4 cm.
--- NOTE | 2018-07-22 12:28 | RAD REPORT ---
EXAM DESCRIPTION: CT - Abdomen Pelvis W Contrast - 07/22/2018 4:23 am CLINICAL HISTORY: The patient is 37 years old and is Female; pelvic pain, s/p hysterectomy, IV ONLY TECHNIQUE: Axial computed tomography images of the abdomen and pelvis with intravenous contrast. S agittal and coronal reformatted images were created and reviewed. This CT exam was performed using one or more of the following dose reduction techniques: automated exposure control, adjustment of t he mA and/or kV according to patient size, and/or use of iterative reconstruction technique. COMPARISON: CT of the abdomen and pelvis June 11, 2018. FINDINGS: LUNG BASES: Minimal dependent densities in the lung bases are present. ABDOMEN: LIVER: A large approximately 2.6 x 3.7 cm cavernous hemangioma with peripheral nodular enhanceme nt in the left hepatic lobe is redemonstrated. A second smaller low attenuating lesion within the rig ht hepatic lobe with suggestion of minimal peripheral nodular enhancement is also present. These are both unchanged from prior exam and again suggestive of a meningioma. GALLBLADDER AND BILE DUCTS: No calcified stones. No ductal dilation. PANCREAS: No ductal dilation. No mass. SPLEEN: Unremarkable. ADRENALS: Unremarkable. No mass. KIDNEYS AND URETERS: Unremarkable. No solid mass. No hydronephrosis. STOMACH AND BOWEL: The stomach is minimally fluid filled. The small bowel is relatively normal i n caliber. A moderate amount of stool is present throughout the colon. There is no mucosal thickening or evidence of bowel obstruction. PELVIS: APPENDIX: The appendix is normal in caliber without surrounding inflammation. BLADDER: Bladder is well distended. REPRODUCTIVE: The patient is status post hysterectomy. A 2.6 cm left adnexal low attenuating l esion is present. A 2.6 cm right adnexal low attenuating lesion is present. Status post hysterectom y. ABDOMEN and PELVIS: INTRAPERITONEAL SPACE: A trace amount of free fluid is present within the pelvis which is likely physiologic. No free air. BONES/JOINTS: No acute fracture. SOFT TISSUES: The soft tissues are normal. VASCULATURE: Unremarkable. No abdominal aortic aneurysm. LYMPH NODES: Unremarkable. No enlarged lymph nodes. IMPRESSION: Findings suggestive of bilateral ovarian cysts. No follow-up imaging is recommended. Electronically signed by: Felicity Meeks MD 07/22/2018 12:18 AM CDT Due to temporary technical issues with the PACS/Fluency reporting system, reports are being signed by the in house radiologist as a courtesy to ensure prompt reporting. The interpreting radiologist is f ully responsible for the content of the report.
== END 2018-07-22 04:04 | disposition home or self-care (01) ==
LOC: ER 21:46
DX: N83.202 Unspecified ovarian cyst, left side (principal); N83.201 Unspecified ovarian cyst, right side; F41.9 Anxiety disorder, unspecified; Z85.41 Personal history of malignant neoplasm of cervix uteri; Z88.8 Allergy status to other drugs, medicaments and biological substances
CPT/HCPCS: 36415; 74177; 76830; 80048; 80076; 81003; 83690; 85025; 96374; 96375; 99284; J1170; J2405; J3010; Q9967

== ENCOUNTER 2018-12-11 08:08 | Emergency (ER) | payer BC ==
--- OUTSIDE RECORDS SUMMARY | 2018-12-11 08:11 | XMS REPORT | Summary of Care ---
:1980 Author Organization [facility] Address [address] [place] [address]- Encounter HQ Nur_silvio(FIN) [id number] Date(s): 11/27/18 - 11/27/18 [facility] [address], [place] [address]- [phone] Discharge Disposition: Home or Self Care Attending Physician: Mac Denson MD Referring Physician: Saurabh Bruno MD Vital Signs Most recent to oldest [Reference Range]: 1 Height 154.94 cm (11/27/18 2:57 PM) Blood Pressure [90-140/60-90 mmHg] 85/63 mmHg *LOW* (11/27/18 2:57 PM) Respiratory Rate [14-20 BRMIN] 16 BRMIN (11/27/18 2:57 PM) Peripheral Pulse Rate [60-100 bpm] 72 bpm (11/27/18 2:57 PM) Weight 51.364 kg (11/27/18 2:57 PM) Body Mass Index 21.4 m2 (11/27/18 2:57 PM) Problem List Condition Effective Dates Status Health Status Informant Anxiety(Confirmed) Active Memory loss(Confirmed) Active Seizures(Confirmed) Active Syncope(Confirmed) Active Allergies, Adverse Reactions, Alerts Substance Reaction Severity Status KlonoPIN seizures Active Medications No Known Medications Results No data available for this section Immunizations No data available for this section Procedures Procedure Date Related Diagnosis Body Site Status Hysterectomy Completed Social History Social History Type Response Employment/School 1 Alcohol Past2 Smoking Status Unknown if ever smoked; Exposure to Tobacco Smoke Unable to obtain; Cigarette Smoking Last 365 Days Unable to obtain; Reg Smoking Cessation Counseling No entered on: 11/27/18 1Can release medical information to Luis [place] - [id number] alcoholic Assessment and Plan No data available for this section
--- OUTSIDE RECORDS SUMMARY | 2018-12-11 08:11 | XMS REPORT | Continuity of Care Document ---
:1980 Author Organization [facility] Care Team Providers Name Role Phone [facility] Unavailable Unavailable Problems Problem Status Onset Classification Date Comments Source Date Reported Anxiety Active Problem 10/24/2018 [facility] Memory loss Active Problem 10/24/2018 [facility] Seizures Active Problem 10/24/2018 [facility] Syncope Active Problem 10/24/2018 [facility] Anxiety Active Problem 11/30/2018 [facility]finding[facility] Memory Active Problem 11/30/2018 [facility] (finding) Seizure Active Problem 11/30/2018 [facility]finding[facility] Syncope Active Problem 11/30/2018 [facility]disorder[facility] Medications Medication Details Route Status Patient Ordering Order Source Instructions Provider Date Methscopolamine PO, Daily, Active [facility] 0 019 [facility] Refill(s) Paroxetine 20 mg, PO, Active [facility] Daily, 0 019 [facility] Refill(s) Chlordiazepoxide 20 mg, PO, Active [facility] Hydrochloride 5 MG QID-Before 019 [facility] / Clidinium bromide Meals, 0 2.5 MG Oral Capsule Refill(s) pantoprazole PO, Daily, Active [facility] 0 019 [facility] Refill(s) Allergies, Adverse Reactions, Alerts Substance Category Reaction Severity Reaction Status Date Comments Source type Reported KlonoPIN Assertion seizures Drug Active [facility] Immunizations No Data Provided for This Section Results No Data Provided for This Section Pathology Reports No Data Provided for This Section Diagnostic Reports No Data Provided for This Section Consultation Notes No Data Provided for This Section Discharge Summaries No Data Provided for This Section History and Physicals No Data Provided for This Section Vital Signs Vital Sign Value Date Comments Source Systolic (mm Hg) 85 11/27/2018 [facility] Diastolic (mm Hg) 63 11/27/2018 [facility] Respitory Rate 16 11/27/2018 [facility] Heart Rate 72 11/27/2018 [facility] Weight 51.364 11/27/2018 [facility] Height 154.94 cm 11/27/2018 [facility] BMI Calculated 21.4 11/27/2018 [facility] [place] Location Location Encounter Encounter Reason Attending ADM DC Status Source Details Type Number For Provider Date Date Visit Outpatient [id number] Mac 10/16 [facility] [place] [facility] Out[facility] [id number] Mac 10/16 10/17 [facility] [place] [facility] [id number] Mac 10/21 Active [facility] [place] [facility] Outpatient [id number] Mac 10/21 10/22 [facility] [place] Out[facility] [id number] Mac 11/27 [facility] [place] [facility] Outpatient [id number] Mac 11/27 11/28 [facility] [place] Out[facility] [id number] Mac 06/04 [facility] Procedures Procedure Code Date Perfomer Comments Source Hysterectomy [id number] [facility] Assessment and Plan No Data Provided for This Section Plan of Care No Data Provided for This Section Social History Social History Date Source Social History TypeResponse 10/16/2018 [facility] Employment/School 1 Alcohol Past2 Smoking Status Unknown if ever smoked; Exposure to Tobacco Smoke Unable to obtain; Cigarette Smoking Last 365 Days Unable to obtain; Reg Smoking Cessation Counseling No entered on: 11/27/18 1Can release medical information to Luis Chowdhury - [id number] alcoholic Family History No Data Provided for This Section Advance Directives No Data Provided for This Section Functional Status No Data Provided for This Section
--- NOTE | 2018-12-11 09:48 | ER ---
Nurse's Notes [facility] Name: Ronald Chowdhury Age: 38 yrs Sex: Female : 1980 Arrival Date: 12/11/2018 Time: 08:11 Bed 15 Private MD: Diagnosis: Contusion of right foot;Contusion of right ankle Presentation: 12/11 08:20 Presenting complaint: Patient states: i dropped a pallet on my R foot yesterday, now hj its swollen and it hurts like 5/10; reports several surgeries on the same foot;. Transition of care: patient was not received from another setting of care. Onset of symptoms was December 11, 2018. Risk Assessment: Do you want to hurt yourself or someone else? Patient reports no desire to harm self or others. Initial Sepsis Screen: Does the patient meet any 2 criteria? No. Patient's initial sepsis screen is negative. Does the patient have a suspected source of infection? No. Patient's initial sepsis screen is negative. Care prior to arrival: None. 08:20 Method Of Arrival: Ambulatory 08:20 Acuity: LAXMI 4 hj Triage Assessment: 08:23 General: Appears in no apparent distress. uncomfortable, Behavior is calm, cooperative, hj appropriate for age. Pain: Complains of pain in right foot. Musculoskeletal: Swelling Reports pain in right foot. 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 - Social history:: Smoking status: Patient uses tobacco products, vape, Patient/guardian denies using alcohol. - Ebola Screening: : Patient negative for fever greater than or equal to 101.5 degrees Fahrenheit, and additional compatible Ebola Virus Disease symptoms Patient denies exposure to infectious person Patient denies travel to an Ebola-affected area in the 21 days before illness onset. Screenin:23 Abuse screen: Denies threats or abuse. Denies injuries from another. Nutritional hj screening: No deficits noted. Tuberculosis screening: No symptoms or risk factors identified. Fall Risk None identified. Vital Signs: 08:25 BP 105 / 74; Pulse 82; Resp 18; Temp 98.0(TE); Pulse Ox 99% on R/A; Weight 53.07 kg; hj Height 5 ft. 7 in. (170.18 cm); Pain 5/10; 08:25 Body Mass Index 18.32 (53.07 kg, 170.18 cm) hj ED Course: 08:11 Patient arrived in ED. as 08:16 Pillo Gonzalez PA is PHCP. cp 08:16 oJe Richmond MD is Attending Physician. cp 08:20 Pedro Suarez, RN is Primary Nurse. hj 08:22 Triage completed. hj 08:24 Arm band placed on right wrist. hj 08:25 Patient has correct armband on for positive identification. Bed in low position. Call hj light in reach. Side rails up X 1. 09:12 XRAY Foot RIGHT 3 View In Process Unspecified. EDMS 09:12 XRAY Ankle RIGHT 3 view In Process Unspecified. EDMS 09:27 No provider procedures requiring assistance completed. Patient did not have IV access hj during this emergency room visit. Administered Medications: No medications were administered Outcome: 09:15 Discharge ordered by . cp 09:27 Discharged to home ambulatory, with family. hj 09:27 Condition: stable 09:27 Discharge instructions given to patient, Instructed on discharge instructions, medication usage, Demonstrated understanding of instructions, follow-up care, medications, Prescriptions given X 1. 09:27 Patient left the ED. hj Signatures: Dispatcher [employer] Cara Spivey as Pedro Suarez RN RN Pillo Pa PA PA cp Corrections: (The following items were deleted from the chart) 08:41 08:20 Presenting complaint: Patient states: i dropped a pallet on my L foot yesterday, hj now its swollen and it hurts like 5/10; reports several surgeries on the same foot; hj
--- NOTE | 2018-12-11 09:49 | EDPHYS ---
Physician Documentation [facility] Name: Ronald Chowdhury Age: 38 yrs Sex: Female : 1980 Arrival Date: 12/11/2018 Time: 08:11 Bed 15 Private MD: ED Physician Joe Richmond HPI: 12/11 08:30 This 38 yrs old Female presents to ER via Ambulatory with complaints of Ankle cp Injury. 08:30 The patient presents with an injury, pain, that is acute, swelling, tenderness. The cp complaints affect the anterior aspect of right ankle and dorsum of right foot. Context: resulted from pallet landing on right ankle and foot, the patient can fully bear weight, the patient is able to ambulate, with mild difficulty. Onset: The symptoms/episode began/occurred yesterday. Associated signs and symptoms: Pertinent negatives calf tenderness, numbness. Treatment prior to arrival includes: post op shoe. 08:30 Severity of symptoms: in the emergency department the symptoms are unchanged, despite cp home interventions. 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 - Social history:: Smoking status: Patient uses tobacco products, vape, Patient/guardian denies using alcohol. - Ebola Screening: : Patient negative for fever greater than or equal to 101.5 degrees Fahrenheit, and additional compatible Ebola Virus Disease symptoms Patient denies exposure to infectious person Patient denies travel to an Ebola-affected area in the 21 days before illness onset. ROS: 08:33 MS/extremity: Positive for pain, swelling, tenderness, of the dorsum of right foot and cp anterior aspect of right ankle, Negative for decreased range of motion, deformity, paresthesias. 08:33 Constitutional: Negative for body aches, chills, fever. cp 08:33 Cardiovascular: Negative for chest pain. 08:33 Respiratory: Negative for cough, shortness of breath. 08:33 Abdomen/GI: Negative for abdominal pain, nausea, vomiting, and diarrhea. 08:33 Skin: Negative for cellulitis, rash. 08:33 All other systems are negative. Exam: 08:40 Constitutional: The patient appears in no acute distress, alert, awake, well developed, cp well nourished. 08:40 Head/Face: Normocephalic, atraumatic. cp 08:40 Musculoskeletal/extremity: Extremities: grossly normal except: noted in the dorsum of right proximal foot and anterior aspect of right ankle: pain, swelling, tenderness, There is no evidence of deformity, Perfusion: the extremity is normally perfused throughout, Sensation intact. 08:40 Skin: cellulitis, is not appreciated, no rash present. Vital Signs: 08:25 BP 105 / 74; Pulse 82; Resp 18; Temp 98.0(TE); Pulse Ox 99% on R/A; Weight 53.07 kg; hj Height 5 ft. 7 in. (170.18 cm); Pain 5/10; 08:25 Body Mass Index 18.32 (53.07 kg, 170.18 cm) hj Procedures: 09:25 Splinting: Splint applied to right foot using walking boot. applied by nurse. Examined cp by me, post splint application: neurovascular intact, Patient tolerated well. MDM: 08:16 Patient medically screened. cp 09:15 Data reviewed: vital signs, nurses notes, radiologic studies, plain films, and as a cp result, I will discharge patient. 09:15 Test interpretation: by ED physician or midlevel provider: xrays of right ankle cp negative for fracture, xrays of right foot negative for fracture. Counseling: I had a detailed discussion with the patient and/or guardian regarding: the historical points, exam findings, and any diagnostic results supporting the discharge/admit diagnosis, radiology results, to return to the emergency department if symptoms worsen or persist or if there are any questions or concerns that arise at home. Response to treatment: the patient's symptoms have markedly improved after treatment, and as a result, I will discharge patient. 12/11 08:23 Order name: XRAY Foot RIGHT 3 View cp 12/11 08:23 Order name: XRAY Ankle RIGHT 3 view cp 12/11 09:14 Order name: Walking boot; Complete Time: 09:15 cp Administered Medications: No medications were administered Disposition: 09:35 Chart complete. cp Disposition: 12/11/18 09:15 Discharged to Home. Impression: Contusion of right foot, Contusion of right ankle. - Condition is Stable. - Discharge Instructions: Foot Contusion, Ankle Pain. - Prescriptions for Naprosyn 500 mg Oral Tablet - take 1 tablet by ORAL route 2 times per day take with food; 20 tablet. Tramadol 50 mg Oral Tablet - take 1 tablet by ORAL route every 8 hours as needed; 12 tablet. - Medication Reconciliation Form, Thank You Letter, Antibiotic Education, Prescription Opioid Use form. - Follow up: Private Physician; When: 1 week; Reason: Worsening of condition. - Problem is new. - Symptoms have improved. Addendum: 12/14/2018 07:18 Co-signature as Attending Physician, Joe Richmond MD. r n Signatures: Dispatcher [employer] EDFL Joe Richmond MD MD rn Joaquin, Henry, RN RN hj Page, Corey, PA PA cp Corrections: (The following items were deleted from the chart) 12/11 09:27 09:15 12/11/2018 09:15 Discharged to Home. Impression: Contusion of right foot; hj Contusion of right ankle. Condition is Stable. Forms are Medication Reconciliation Form, Thank You Letter, Antibiotic Education, Prescription Opioid Use. Follow up: Private Physician; When: 1 week; Reason: Worsening of condition. Problem is new. Symptoms have improved. cp
--- NOTE | 2018-12-11 10:16 | RAD REPORT ---
EXAM DESCRIPTION: RAD - Ankle Right 3 View - 12/11/2018 9:12 am CLINICAL HISTORY: Right ankle pain FINDINGS: No fracture or dislocation is seen.
--- NOTE | 2018-12-11 10:18 | RAD REPORT ---
EXAM DESCRIPTION: RAD - Foot Right 3 View - 12/11/2018 9:12 am CLINICAL HISTORY: Right foot pain status post injury FINDINGS: No fracture or dislocation is seen. Postsurgical changes involve first metatarsal
== END 2018-12-11 09:27 | disposition home or self-care (01) ==
LOC: ER 08:08
DX: S90.31XA Contusion of right foot, initial encounter (principal); S90.01XA Contusion of right ankle, initial encounter; W22.8XXA Striking against or struck by other objects, initial encounter; Y93.9 Activity, unspecified; Y92.9 Unspecified place or not applicable; F41.9 Anxiety disorder, unspecified; Z72.0 Tobacco use; Z85.41 Personal history of malignant neoplasm of cervix uteri; Z88.8 Allergy status to other drugs, medicaments and biological substances
CPT/HCPCS: 99283

== ENCOUNTER 2019-01-08 19:19 | Emergency (ER) | payer BC ==
--- OUTSIDE RECORDS SUMMARY | 2019-01-08 19:22 | XMS REPORT | Continuity of Care Document ---
:1980 Author Organization [facility] Care Team Providers Name Role Phone [facility] Unavailable Unavailable Problems Problem Status Onset Classification [...] 11/27/2018 [facility] BMI Calculated 21.4 11/27/2018 [facility] En[place] Location Location Encounter Encounter Reason Attending ADM DC Status Source Details Type Number For Provider Date Date Visit Outpatient [id number] Mac 10/16 [facility] Outpatient [id number] Mac 10/16 10/17 [facility] [place] Outpatient [id number] Mac 10/21 Active [facility] Outpatient [id number] Mac 10/21 10/22 [facility] [place] Outpatient [id number] Mac 11/27 [facility] Outpatient [id number] Mac 11/27 11/28 [facility] [place] Outpatient [id number] Mac 06/04 [facility] Procedures Procedure Code Date Perfomer Comments Source Hysterectomy [id number] [facility] Assessment and Plan No Data Provided for This Section Plan of Care No Data Provided for This Section Social History Social History Date Source Social History TypeResponse 10/16/2018 [facility] Employment/School 1 Alcohol Past2 Smoking Status Unknown if ever smoked; Exposure to Tobacco Smoke Unable to obtain; Cigarette Smoking Last 365 Days Unable to obtain; Reg Smoking Cessation Counseling No entered on: 11/27/18 1Can release medical information to Luis Chowdhury - [id number] alcoholic Family History No Data Provided for This Section Advance Directives No Data Provided for This Section Functional Status No Data Provided for This Section
[2019-01-08] MEDS ORDERED: IPRATROPIUM BROM 0.5MG/2.5ML ONE (21:31)
[2019-01-08] MEDS ORDERED: ACETAMINOPHEN 325 MG TABLET ONE (21:31)
[2019-01-08] MEDS ORDERED: ALBUTEROL 2.5 MG/3 ML NEB SOL ONE (21:31)
[2019-01-08 21:32] LABS: Absolute Lymphocytes (CBC) 2.8 K/uL (0.7-4.9); Basophils % 0.3 % (0-1.3); Hematocrit 37.3 % (36.0-45.0); Lymphocytes % 28.4 % (15.3-44.8); MPV 10.5 fL (7.6-11.3); RBC Red Blood Cell Count 3.83 M/uL (3.86-4.86)
[2019-01-08] MEDS ORDERED: HYDROCODONE/CHLORPHEN 5 ML/OSYR ONE (21:32)
[2019-01-08 21:37] LABS: Protime INR 1.07
[2019-01-08 21:45] LABS: Urine Blood TRACE (NEG); Urine Glucose NEGATIVE (NEG); Urine Protein NEGATIVE (NEG); Urine pH 5.5 (5.0-7.0)
[2019-01-08 21:52] LABS: ALT/SGPT 41 U/L (12-78); AST/SGOT 17 U/L (15-37); Albumin 3.9 g/dL (3.4-5.0); Alkaline Phosphatase 60 U/L (45-117); BUN Blood Urea Nitrogen 21 mg/dL (7-18); Bicarbonate 28 mmol/L (21-32); Bilirubin Direct 0.1 mg/dL (0-0.2); Bilirubin Total 0.2 mg/dL (0.2-1.0); Glucose Level 85 mg/dL (74-106); Magnesium 2.4 mg/dL (1.8-2.4); NT PRO-BNP 70 pg/mL (<125); Potassium 4.2 mmol/L (3.5-5.1); Protein, Total 7.4 g/dL (6.4-8.2); Sodium Level 141 mmol/L (136-145); Troponin (Emerg Dept Use Only) < 0.02 ng/mL (0.0-0.045)
[2019-01-08] MEDS ORDERED: KETOROLAC 30 MG/ML INJ ONE (22:02)
[2019-01-08] MEDS ORDERED: dexAMETHasone 10 MG/ML VIAL ONE (22:55)
[2019-01-08] MEDS ORDERED: DIPHENHYDRAMINE 50 MG/ML VIAL ONE (22:55)
[2019-01-08] MEDS ORDERED: METOCLOPRAMIDE 10 MG/2mL INJ ONE (22:55)
[2019-01-08] MEDS ORDERED: NA CHLORIDE 0.9% 1,000 ML ONE (23:00)
--- NOTE | 2019-01-08 23:18 | ER ---
Nurse's Notes [facility] Name: Ronald Chowdhury Age: 38 yrs Sex: Female : 1980 Arrival Date: 01/08/2019 Time: 20:00 Bed 25 Private MD: Diagnosis: Cough;Headache Presentation: 01/08 20:00 Presenting complaint: Patient states: Dry cough, shortness of breath x 2 weeks, seen by lp1 PCP, diagnosed with URI, bronchitis, given antibiotics with no improvement; Pain on respiration; Denies any fever. Transition of care: patient was not received from another setting of care. Onset of symptoms was January 08, 2019. Risk Assessment: Do you want to hurt yourself or someone else? Patient reports no desire to harm self or others. Initial Sepsis Screen: Does the patient meet any 2 criteria? No. Patient's initial sepsis screen is negative. Does the patient have a suspected source of infection? No. Patient's initial sepsis screen is negative. Care prior to arrival: None. 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 - Social history:: Smoking status: Patient/guardian denies using tobacco. - Ebola Screening: : Patient negative for fever greater than or equal to 101.5 degrees Fahrenheit, and additional compatible Ebola Virus Disease symptoms Patient denies exposure to infectious person. Screenin:00 Abuse screen: Denies threats or abuse. Denies injuries from another. Nutritional wh screening: No deficits noted. Tuberculosis screening: No symptoms or risk factors identified. Fall Risk None identified. Assessment: 20:30 General: Appears in no apparent distress. uncomfortable, Behavior is calm, cooperative, wh appropriate for age. Pain: Complains of pain in diaphragm Pain does not radiate. Pain currently is 5 out of 10 on a pain scale. Quality of pain is described as aching. Neuro: Level of Consciousness is awake, alert, obeys commands. Neuro: Level of Consciousness is. Cardiovascular: Heart tones S1 S2 Capillary refill < 3 seconds. Respiratory: Reports shortness of breath cough that is Airway is patent Respiratory effort is even, unlabored, Respiratory pattern is regular, symmetrical, Breath sounds are clear bilaterally. GI: Abdomen is flat, non-distended, Abd is soft and non tender X 4 quads. : No signs and/or symptoms were reported regarding the genitourinary system. EENT: No signs and/or symptoms were reported regarding the EENT system. Derm: Skin is intact, is healthy with good turgor, Skin is pink, warm \T\ dry. normal. Musculoskeletal: Circulation, motion, and sensation intact. 21:45 Reassessment: Patient appears in no apparent distress at this time. No changes from previously documented assessment. Patient and/or family updated on plan of care and expected duration. Pain level reassessed. Patient is alert, oriented x 3, equal unlabored respirations, skin warm/dry/pink. 22:47 Reassessment: Patient appears in no apparent distress at this time. No changes from previously documented assessment. Patient and/or family updated on plan of care and expected duration. Pain level reassessed. Patient is alert, oriented x 3, equal unlabored respirations, skin warm/dry/pink. Vital Signs: 20:01 BP 114 / 76; Pulse 84; Resp 18; Temp 98.3(O); Pulse Ox 99% on R/A; Weight 53.07 kg; lp1 Height 5 ft. 1 in. (154.94 cm); Pain 5/10; 21:15 BP 99 / 73; Pulse 70; Resp 18; Pulse Ox 98% on R/A; wh 22:45 BP 102 / 71; Pulse 87; Resp 18; Pulse Ox 100% on R/A; wh 20:01 Body Mass Index 22.11 (53.07 kg, 154.94 cm) lp1 ED Course: 20:00 Patient arrived in ED. ag3 20:01 Triage completed. lp1 20:02 Arm band placed on. lp1 20:11 Josefina Baptiste is Primary Nurse. wh 20:21 Pillo Gonzalez PA is PHCP. cp 20:21 Pillo Bolton MD is Attending Physician. cp 21:00 Patient has correct armband on for positive identification. Placed in gown. Bed in low wh position. Call light in reach. Side rails up X 1. surveillance system monitor on. Pulse ox on. NIBP on. 21:11 XRAY Chest (1 view) In Process Unspecified. EDMS 21:20 Inserted saline lock: 22 gauge in left antecubital area, using aseptic technique. Blood wh collected. 21:38 Notified Nurse Practitioner and/or Physician [employer] Observer of a critical lab result(s), d fc dimer 582. 22:24 CT Chest For PE Angio In Process Unspecified. EDMS 23:38 No provider procedures requiring assistance completed. IV discontinued. tr5 Administered Medications: 21:36 Drug: Tylenol 650 mg Route: PO; wh 22:48 Follow up: Response: No adverse reaction 21:37 Drug: Tussionex Pennkinetic ER 5 ml Route: PO; wh 22:48 Follow up: Response: No adverse reaction 21:37 Drug: Albuterol - atroVENT (3:1) (2.5 mg - 0.5 mg) 3 ml Route: Nebulizer; wh 22:48 Follow up: Response: No adverse reaction 22:05 Drug: TORadol 30 mg Route: IVP; Site: left antecubital; 22:48 Follow up: Response: No adverse reaction 23:05 Drug: NS 0.9% 1000 ml Route: IV; Rate: 1 bolus; Site: left antecubital; 23:06 Drug: Reglan 10 mg Route: IVP; Site: left antecubital; wh 23:06 Drug: Benadryl 25 mg Route: IVP; Site: left antecubital; wh 23:06 Drug: Decadron - Dexamethasone 10 mg Route: IVP; Site: left antecubital; Outcome: 23:18 Discharge ordered by . cp 23:38 Discharged to home ambulatory. tr5 23:38 Condition: stable 23:38 Discharge instructions given to patient, Instructed on discharge instructions, follow up and referral plans. medication usage, Demonstrated understanding of instructions, follow-up care, medications, Prescriptions given X 3. 23:41 Patient left the ED. tr5 Signatures: Dispatcher [employer] EDMS Meg Kathleena, RN RN fc Danielle Quevedo RN RN lp1 Pillo Gonzalez PA PA cp Habalo, Winsy wh Gomez, Alice ag3 Ghassan Alvarez RN RN tr5
--- NOTE | 2019-01-08 23:19 | EDPHYS ---
Physician Documentation [facility] Name: Ronald Chowdhury Age: 38 yrs Sex: Female : 1980 Arrival Date: 01/08/2019 Time: 20:00 Bed 25 Private MD: ED Physician Pillo Bolton HPI: 01/08 20:45 This 38 yrs old Female presents to ER via Wheelchair with complaints of Cough.cp 20:45 The patient or guardian reports cough, with no sputum. Onset: The symptoms/episode cp began/occurred 2 week(s) ago. 20:45 Severity of symptoms: in the emergency department the symptoms are unchanged, despite cp home interventions. Associated signs and symptoms: Pertinent positives: chest pain, with cough, with breathing, headache from coughing, Pertinent negatives: diarrhea, fever, vomiting. The patient has been recently seen by a physician: the patient's primary care provider, with similar presenting complaints, was given a prescription for antibiotics, steroid inhaler. 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 - Social history:: Smoking status: Patient/guardian denies using tobacco. - Ebola Screening: : Patient negative for fever greater than or equal to 101.5 degrees Fahrenheit, and additional compatible Ebola Virus Disease symptoms Patient denies exposure to infectious person. ROS: 20:55 Constitutional: Negative for body aches, chills, fever, poor PO intake. cp 20:55 Eyes: Negative for injury, pain, redness, and discharge. cp 20:55 ENT: Negative for drainage from ear(s), ear pain, sinus congestion, sinus pain, sore throat, difficulty swallowing, difficulty handling secretions. 20:55 Neck: Positive for pain with movement. 20:55 Cardiovascular: Positive for chest pain, Negative for edema, palpitations. 20:55 Respiratory: Positive for cough, with no reported sputum, shortness of breath, Negative for hemoptysis, wheezing. 20:55 Abdomen/GI: Negative for abdominal pain, nausea, vomiting, and diarrhea, constipation, black/tarry stool, rectal bleeding. 20:55 : Negative for urinary symptoms. 20:55 Skin: Negative for rash. 20:55 Neuro: Positive for headache, Negative for altered mental status, dizziness, syncope, weakness. 20:55 All other systems are negative. Exam: 21:00 Constitutional: The patient appears in no acute distress, alert, awake, cp non-diaphoretic, non-toxic, well developed, well nourished, uncomfortable. 21:00 Head/Face: Normocephalic, atraumatic. cp 21:00 Eyes: Periorbital structures: appear normal, Conjunctiva: normal, no exudate, no injection, Sclera: no appreciated abnormality, Lids and lashes: appear normal, bilaterally. 21:00 ENT: External ear(s): are unremarkable, Ear canal(s): are normal, clear, TM's: dullness, bilaterally, Nose: is normal, Mouth: Lips: moist, Oral mucosa: pink and intact, moist, Posterior pharynx: is normal, airway is patent, no erythema, no exudate. 21:00 Neck: ROM/movement: Meningeal signs: are not present, nuchal rigidity, is not appreciated, Lymph nodes: no appreciated lymphadenopathy. 21:00 Chest/axilla: Inspection: normal, Palpation: is normal, no crepitus, no tenderness. 21:00 Cardiovascular: Rate: normal, Rhythm: regular, Edema: is not appreciated, JVD: is not appreciated. 21:00 Respiratory: the patient does not display signs of respiratory distress, Respirations: labored breathing, is not present, shallow respirations, that is mild, tachypnea, is not appreciated, Breath sounds: decreased breath sounds, are not appreciated, stridor, is not appreciated, wheezing: is not appreciated. 21:00 Abdomen/GI: Inspection: abdomen appears normal, Bowel sounds: active, all quadrants, Palpation: abdomen is soft and non-tender, in all quadrants, voluntary guarding, is not appreciated, involuntary guarding, is not appreciated. 21:00 Skin: no rash present. 21:00 Neuro: Orientation: to person, place \T\ time. Mentation: is normal, Cerebellar function: is grossly normal, Motor: moves all fours, strength is normal, Sensation: is normal. 21:10 ECG was reviewed by the Attending Physician. cp Vital Signs: 20:01 BP 114 / 76; Pulse 84; Resp 18; Temp 98.3(O); Pulse Ox 99% on R/A; Weight 53.07 kg; lp1 Height 5 ft. 1 in. (154.94 cm); Pain 5/10; 21:15 BP 99 / 73; Pulse 70; Resp 18; Pulse Ox 98% on R/A; wh 22:45 BP 102 / 71; Pulse 87; Resp 18; Pulse Ox 100% on R/A; wh 20:01 Body Mass Index 22.11 (53.07 kg, 154.94 cm) lp1 MDM: 20:22 Patient medically screened. cp 21:00 Differential Diagnosis: Bronchitis Influenza Viral Syndrome Pneumonia Other pulmonary cp embolism, pulmonary edema, less likely meningitis. 23:17 Data reviewed: vital signs, nurses notes, lab test result(s), EKG, radiologic studies, cp CT scan, plain films. 23:17 Test interpretation: by ED physician or midlevel provider: ECG, plain radiologic cp studies. Counseling: I had a detailed discussion with the patient and/or guardian regarding: the historical points, exam findings, and any diagnostic results supporting the discharge/admit diagnosis, lab results, radiology results, the need for outpatient follow up, a family practitioner, to return to the emergency department if symptoms worsen or persist or if there are any questions or concerns that arise at home. Response to treatment: the patient's symptoms have markedly improved after treatment, and as a result, I will discharge patient. Special discussion: I discussed with the patient/guardian that the patient's current presentation does not indicate dosing of antibiotics. They should follow-up with their primary care provider and return if the symptoms persist or progress. 23:17 ED course: VSS. Symptoms improved with meds. CT chest negative for PE or acute cp findings. Will discharge to home for continued monitoring. 01/08 20:42 Order name: Basic Metabolic Panel; Complete Time: 22:05 cp 01/08 22:05 Interpretation: Normal except: CL 109; BUN 21. cp 01/08 20:42 Order name: CBC with Diff; Complete Time: 21:40 cp 01/08 20:42 Order name: LFT's; Complete Time: 22:05 cp / 20:42 Order name: Magnesium; Complete Time: 22:05 cp 01/08 20:42 Order name: NT PRO-BNP; Complete Time: 22:05 cp / 20:42 Order name: PT-INR; Complete Time: 21:40 cp / 20:42 Order name: Troponin (emerg Dept Use Only); Complete Time: 22:05 cp 01/08 22:05 Interpretation: Within normal limits: TROPED < 0.02. cp / 20:42 Order name: XRAY Chest (1 view) cp 01/08 21:03 Order name: D-Dimer; Complete Time: 21:40 cp 01/08 22:05 Interpretation: Abnormal: D-DIMER 582. cp 01/08 21:39 Order name: Urine Dipstick--Ancillary (enter results); Complete Time: 22:05 mw2 01/08 22:05 Interpretation: Normal except: UBLD TRACE; UESTR TRACE. cp 01/08 21:39 Order name: Urine --Ancillary (enter results); Complete Time: 22:05 mw2 01/08 21:42 Order name: CT Chest For PE Angio cp 01/08 20:42 Order name: EKG; Complete Time: 20:44 cp 01/08 20:42 Order name: Cardiac monitoring; Complete Time: 21:25 cp 01/08 20:42 Order name: EKG - Nurse/Tech; Complete Time: 21:25 cp 01/08 20:42 Order name: IV Saline Lock; Complete Time: 21:25 cp 01/08 20:42 Order name: Labs collected and sent; Complete Time: 21:25 cp 01/08 20:42 Order name: O2 Per Protocol; Complete Time: 21:25 cp 01/08 20:42 Order name: O2 Sat Monitoring; Complete Time: 21:25 cp 01/08 21:03 Order name: Urine Dipstick-Ancillary (obtain specimen); Complete Time: 21:37 cp 01/08 21:03 Order name: Urine Test (obtain specimen); Complete Time: 21:37 cp EC:10 Rate is 68 beats/min. Rhythm is regular. AL interval is normal. QRS interval is normal. cp QT interval is normal. Interpreted by me. Reviewed by me. Administered Medications: 21:36 Drug: Tylenol 650 mg Route: PO; 22:48 Follow up: Response: No adverse reaction 21:37 Drug: Tussionex Pennkinetic ER 5 ml Route: PO; 22:48 Follow up: Response: No adverse reaction 21:37 Drug: Albuterol - atroVENT (3:1) (2.5 mg - 0.5 mg) 3 ml Route: Nebulizer; 22:48 Follow up: Response: No adverse reaction 22:05 Drug: TORadol 30 mg Route: IVP; Site: left antecubital; 22:48 Follow up: Response: No adverse reaction 23:05 Drug: NS 0.9% 1000 ml Route: IV; Rate: 1 bolus; Site: left antecubital; 23:06 Drug: Reglan 10 mg Route: IVP; Site: left antecubital; 23:06 Drug: Benadryl 25 mg Route: IVP; Site: left antecubital; 23:06 Drug: Decadron - Dexamethasone 10 mg Route: IVP; Site: left antecubital; Disposition: 01/08/19 23:18 Discharged to Home. Impression: Cough, Headache. - Condition is Stable. - Discharge Instructions: General Headache Without Cause, Cough, Adult. - Prescriptions for Cheratussin AC 10- 100 mg/5 mL Oral liquid - take 10 milliliter by ORAL route every 6 hours As needed; 180 milliliter. Medrol (Pro) 4 mg Oral Tablets, Dose Pack - take 1 tablet by ORAL route as directed - follow package instructions; 1 packet. Albuterol Sulfate 90 mcg/actuation - inhale 1-2 puff by INHALATION route every 4-6 hours; 1 Inhaler. - Medication Reconciliation Form, Thank You Letter, Antibiotic Education, Prescription Opioid Use form. - Follow up: Private Physician; When: 2 - 3 days; Reason: Recheck today's complaints. - Problem is an ongoing problem. - Symptoms have improved. Addendum: 01/11/2019 08:31 Co-signature as Attending Physician, Pillo Bolton MD I agree with the assessment and c pinto plan of care. Signatures: Dispatcher [employer] Pillo Vitale MD MD cha Page, Corey, PA PA cp Habalo, Winsy Jaciel Alvareze, RN RN tr5 Corrections: (The following items were deleted from the chart) 01/08 23:41 23:18 01/08/2019 23:18 Discharged to Home. Impression: Cough; Headache. Condition is tr5 Stable. Forms are Medication Reconciliation Form, Thank You Letter, Antibiotic Education, Prescription Opioid Use. Follow up: Private Physician; When: 2 - 3 days; Reason: Recheck today's complaints. Problem is an ongoing problem. Symptoms have improved. cp
[2019-01-08 23:56] VITALS: TEMP 98.3
[2019-01-08 23:58] VITALS: BP 102/71; O2SAT 100
--- NOTE | 2019-01-09 09:19 | RAD REPORT ---
EXAM DESCRIPTION: Ervin Single View01/08/2019 9:09 pm CLINICAL HISTORY: cough COMPARISON: none FINDINGS: The lungs appear clear of acute infiltrate. The heart is normal size IMPRESSION: No acute abnormalities displayed
--- NOTE | 2019-01-10 18:27 | EKG ---
Test Date: 2019-01-08 Test Time: 21:01:22 Shipping Processor: SARAHI MEASUREMENT RESULTS: Intervals: Rate: 68 OR: 130 QRSD: 82 QT: 400 QTc: 425 [place]: P: 87 OR: 130 QRS: 80 T: 51 INTERPRETIVE STATEMENTS: Normal sinus rhythm Normal ECG No previous ECG available for comparison Electronically Signed On 01-10-19 18:23:14 CDT by Poli Goncalves
--- NOTE | 2019-01-11 10:44 | RAD REPORT ---
EXAM DESCRIPTION: CT - Chest For Pe Angio - 01/09/2019 1:45 am CLINICAL HISTORY: Shortness of breath. COMPARISON: None. TECHNIQUE: CT angiogram of the chest with IV contrast. 3-D MIP images were obtained in coronal and s agittal reconstructions. This exam was performed according to our departmental dose-optimization prog marysol, which includes automated exposure control, adjustment of the mA and/or kV according to patient s ize and/or use of iterative reconstruction technique. FINDINGS: No filling defects are identified in the pulmonary trunk, main left and right pulmonary ar teries, or the segmental branches. The thyroid gland is normal. No mediastinal or hilar adenopathy. The heart size is normal without per icardial effusion. The thoracic aorta is normal caliber. There are trace bilateral pleural effusions. No consolidation or pneumothorax. The visualized upper abdomen demonstrates no acute findings. No acute osseous findings are seen. IMPRESSION: No acute pulmonary embolism. Electronically signed by: Mayank Berger MD 01/08/2019 10:32 PM CDT Due to temporary technical issues with the PACS/Fluency reporting system, reports are being signed by the in house radiologist as a courtesy to ensure prompt reporting. The interpreting radiologist is f ully responsible for the content of the report.
== END 2019-01-08 23:41 | disposition home or self-care (01) ==
LOC: ER 19:19
DX: R51 Headache (principal); F41.9 Anxiety disorder, unspecified; Z88.8 Allergy status to other drugs, medicaments and biological substances
CPT/HCPCS: 93005; 85025; 80048; 36415; 83735; 81025; 85610; 85379; 80076; 81003; 84484; 83880; 71275; 71045; 94640; 96375; 96374; 99285; Q9967; J2765; J1100; J7030